=== PATIENT | male | born 1965 | race Caucasian/White ===

== ENCOUNTER 2017-01-26 15:38 | Emergency (ER) | payer OTHER ==
[~2017-01-26 15:38] MED LIST: HYDR-3533 PO; PRIL20CA PO; RIVA15 PO
[2017-01-26 15:40] VITALS: BP 131/85; PULSE 84; RESP 16; TEMP 98.7; O2SAT 99
--- NOTE | 2017-01-26 15:55 | PD ---
Physical Exam Date Seen by Provider: Jan 26, 2017 Time Seen by Provider: 15:53 Data Data Last Documented VS Vital Signs Date Time Temp Pulse Resp B/P Pulse Ox O2 Delivery O2 Flow Rate FiO2 01/26/17 15:40 98.7 84 16 131/85 99 MDM Supervised Visit with ROBBIE: No Narrative Course 51 YO M with complaint of "excruciating" LEFT flank pain since 2 AM. Intermittent, worsened by standing. Relieved by leaning forward while sitting. Patient states otherwise asymptomatic. Vitals reviewed. Patient seen in triage, awaiting bed placement. Angelina Echevarria Jan 26, 2017 15:55
[2017-01-26 16:08] VITALS: BP 133/82; PULSE 73; RESP 19; TEMP 97.9; O2SAT 98
[2017-01-26] MEDS ORDERED: SODIUM CHLOR 0.9% 1000 ML INJ 1,000 ML IV SCH (16:16)
[2017-01-26] MEDS ORDERED: FOLI400T PO (16:17)
[2017-01-26] MEDS ORDERED: CYAN100025 SL (16:17)
[2017-01-26] MEDS ORDERED: MONT10TA4 PO (16:17)
[2017-01-26] MEDS ORDERED: FLUT50SP EACH NARE (16:17)
[2017-01-26] MEDS ORDERED: OMEP20TA PO (16:17)
[2017-01-26 16:18] VITALS: BP 133/82; PULSE 74; RESP 19; TEMP 97.9; O2SAT 97
[2017-01-26] MEDS ORDERED: SODIUM CHLORIDE 0.9% FLUSH 10 ML FLUSH IV FLUSH PRN (16:30)
[2017-01-26] MEDS ORDERED: ONDANSETRON HCL 4 MG/2 ML VIAL IVP ONE (16:30)
[2017-01-26] MEDS ORDERED: MORPHINE SULFATE 4 MG/ML INJ IV PUSH ONE (16:30)
--- NOTE | 2017-01-26 16:49 | RADRPT ---
EXAM DATE/TIME: 01/26/2017 16:29 [facility] COMPARISON: No previous studies available for comparison. INDICATIONS : Left lower quadrant pain. ORAL CONTRAST: No oral contrast ingested. RADIATION DOSE: 14.61 CTDIvol (mGy) MEDICAL HISTORY : Gastroesophageal reflux disease. Hypertension. SURGICAL HISTORY : None. ENCOUNTER: Initial ACUITY: 1 day PAIN SCALE: 8/10 LOCATION: Left flank TECHNIQUE: Volumetric scanning of the abdomen and pelvis was performed. Using automated exposure control and ad justment of the mA and/or kV according to patient size, radiation dose was kept as low as reasonably achievable to obtain optimal diagnostic quality images. DICOM format image data is available electro nically for review and comparison. FINDINGS: Lung bases demonstrate some dependent atelectasis. No acute findings in the liver, spleen, adrenals, kidneys or pancreas. No calcified gallstones or biliary ductal dilatation. There is mural thickening of proximal sigmoid colon with numerous diverticula and perisigmoid inflamm atory changes characteristic of proximal sigmoid diverticulitis. No obstruction, abscess, free fluid or free air. No pelvic masses or adenopathy. CONCLUSION: 1. Diverticulitis of the proximal sigmoid colon without abscess, obstruction, free fluid or free air. Darian Bass MD on January 26, 2017 at 16:43 Board Certified Radiologist. This report was verified electronically.
[2017-01-26] MEDS ORDERED: metroNIDAZOLE 500 MG INJ 100 ML IV ONE (17:00)
[2017-01-26] MEDS ORDERED: CIPROFLOXACIN 400 MG PREMIX 200 ML IV ONE (17:00)
[2017-01-26 17:03] LABS: AUTOMATED NEUTROPHIL # 9.3 TH/MM3 (1.8-7.7); BASOPHIL # 0.1 TH/MM3 (0-0.2); BASOPHIL % 0.6 % (0.0-2.0); EOSINOPHIL # 0.2 TH/MM3 (0-0.4); EOSINOPHIL % 1.7 % (0.0-4.0); HEMATOCRIT 46.7 % (39.0-51.0); HEMO FLAGS DIFF FINAL; LYMPH % 16.2 % (9.0-44.0); MEAN CELL VOLUME 95.6 FL (80.0-100.0); MEAN CORPUSCULAR HEMOGLOBIN 32.3 PG (27.0-34.0); MEAN CORPUSCULAR HGB CONC 33.8 % (32.0-36.0); MONO % 6.2 % (0.0-8.0); NEUT % 75.3 % (16.0-70.0); PLATELET COUNT 170 TH/MM3 (150-450); RED BLOOD COUNT 4.89 MIL/MM3 (4.50-5.90); RED CELL DISTRIBUTION WIDTH 12.8 % (11.6-17.2); WHITE BLOOD COUNT 12.3 TH/MM3 (4.0-11.0)
[2017-01-26] MEDS ORDERED: CIPR-9 PO (17:09)
[2017-01-26] MEDS ORDERED: METR-1 PO (17:09)
--- NOTE | 2017-01-26 17:09 | PD ---
HPI Chief Complaint: GI Complaint Time Seen by Provider: 16:09 Travel History International Travel<30 days: No Contact w/Intl Traveler<30days: No Traveled to known affect area: No History of Present Illness HPI The 51-year-old man who presents to the emergency department complaining of severe left-sided flank and abdominal pain started about 2 AM. Since been off- and-on since onset. No nausea or vomiting. No fevers or chills. No changes urination. No rash. No change in his bowel movements. His a history of GERD, seasonal allergies, and a previous DVT in the past. He otherwise looks well. No history of previous similar symptoms. History Past Medical History Narrative Medical GERD Seasonal allergies History of DVT, on completed 6 months of Xarelto Tetanus Vaccination: Unknown Past Surgical History Surgical History: No Previous Surgery Social History Alcohol Use: Yes (4 SHOTS LIQUOR ON WEEKENDS) Tobacco Use: Yes (1 PPD) Allergies-Medications (Allergen,Severity, Reaction): Coded Allergies: Penicillin (Verified Adverse Reaction, Severe, FAINT, NAUSEA, 01/26/17) Reported Meds & Prescriptions Reported Meds & Active Scripts Active Flagyl (Metronidazole) 500 Mg Tab 500 Mg PO BID 7 Days Cipro (Ciprofloxacin HCl) 500 Mg Tab 500 Mg PO BID 7 Days Reported Folic Acid 400 Mcg Tab 1 Mg PO DAILY Montelukast (Montelukast Sodium) 10 Mg Tab 10 Mg PO HS Fluticasone Nasal [place] 50 Mcg/Act Naspr 50 Mcg EACH NARE BID 50 mcg/spray B-12 (Cyanocobalamin) 1,000 Mcg Subl 1,000 Mcg SL DAILY Omeprazole 20 Mg Tab 20 Mg PO DAILY Review of Systems Except as stated in HPI: all other systems reviewed are Neg Physical Exam Narrative GENERAL: Well-appearing 51-year-old man, no acute distress. SKIN: Focused skin assessment warm/dry. CARDIOVASCULAR: Regular rate and rhythm. No murmur appreciated. RESPIRATORY: No accessory muscle use. Clear to auscultation. Breath sounds equal bilaterally. GASTROINTESTINAL: Left-sided abdominal tenderness and some apparent allodynia as well. Some voluntary guarding. No peritonitis. MUSCULOSKELETAL: No obvious deformities. No clubbing. No cyanosis. No edema. NEUROLOGICAL: Awake and alert. No obvious cranial nerve deficits. Motor grossly within normal limits. Normal speech. PSYCHIATRIC: Appropriate mood and affect; insight and judgment normal. Data Data Last Documented VS Vital Signs Date Time Temp Pulse Resp B/P Pulse Ox O2 Delivery O2 Flow Rate FiO2 01/26/17 16:18 97.9 74 19 133/82 97 Room Air Orders Complete Blood Count With Diff (01/26/17 16:16) Comprehensive Metabolic Panel (01/26/17 16:16) Lipase (01/26/17 16:16) Urinalysis - C+S If Indicated (01/26/17 16:16) Ct Abd/Pel W/O Iv Contrast (01/26/17 16:16) Iv Access Insert/Monitor (01/26/17 16:16) Ecg Monitoring (01/26/17 16:16) Oximetry (01/26/17 16:16) Morphine Inj (Morphine Inj) (01/26/17 16:30) Ondansetron Inj (Zofran Inj) (01/26/17 16:30) Sodium Chlor 0.9% 1000 Ml Inj (Ns 1000 M (01/26/17 16:16) Sodium Chloride 0.9% Flush (Ns Flush) (01/26/17 16:30) Ciprofloxacin 400 Mg Premix (Cipro 400 M (01/26/17 17:00) Metronidazole 500 Mg Inj (Flagyl 500 Mg (01/26/17 17:00) Labs Laboratory Tests Test 01/26/17 16:20 White Blood Count 12.3 TH/MM3 Red Blood Count 4.89 MIL/MM3 Hemoglobin 15.8 GM/DL Hematocrit 46.7 % Mean Corpuscular Volume 95.6 FL Mean Corpuscular Hemoglobin 32.3 PG Mean Corpuscular Hemoglobin 33.8 % Concent Red Cell Distribution Width 12.8 % Platelet Count 170 TH/MM3 Mean Platelet Volume 9.0 FL Neutrophils (%) (Auto) 75.3 % Lymphocytes (%) (Auto) 16.2 % Monocytes (%) (Auto) 6.2 % Eosinophils (%) (Auto) 1.7 % Basophils (%) (Auto) 0.6 % Neutrophils # (Auto) 9.3 TH/MM3 Lymphocytes # (Auto) 2.0 TH/MM3 Monocytes # (Auto) 0.8 TH/MM3 Eosinophils # (Auto) 0.2 TH/MM3 Basophils # (Auto) 0.1 TH/MM3 CBC Comment DIFF FINAL Differential Comment Urine Color YELLOW Urine Turbidity CLEAR Urine pH 5.5 Urine Specific Free [place] 1.018 Urine Protein 100 mg/dL Urine Glucose (UA) NEG mg/dL Urine Ketones NEG mg/dL Urine Occult Blood TRACE Urine Nitrite NEG Urine Bilirubin NEG Urine Urobilinogen LESS THAN 2.0 MG/DL Urine Leukocyte Esterase NEG Urine RBC 1 /hpf Urine WBC 1 /hpf Urine Squamous Epithelial <1 /hpf Cells Urine Mucus FEW /lpf Microscopic Urinalysis Comment CULT NOT INDICATED Sodium Level 137 MEQ/L Potassium Level 4.1 MEQ/L Chloride Level 105 MEQ/L Carbon Dioxide Level 25.7 MEQ/L Anion Gap 6 MEQ/L Blood Urea Nitrogen 19 MG/DL Creatinine 1.12 MG/DL Estimat Glomerular Filtration 69 ML/MIN Rate Random Glucose 101 MG/DL Calcium Level 8.9 MG/DL Total Bilirubin 0.5 MG/DL Aspartate Amino Transf 8 U/L (AST/SGOT) Alanine Aminotransferase 15 U/L (ALT/SGPT) Alkaline Phosphatase 71 U/L Total Protein 6.9 GM/DL Albumin 3.5 GM/DL Lipase 102 U/L [facility] Medical Decision Making Medical Screen Exam Complete: Yes Emergency Medical Condition: Yes Interpretation(s) CT abdomen and pelvis: Diverticulitis of the proximal sigmoid colon without abscess obstruction free air or free fluid. CBC is remarkable for mild leukocytosis. CMP remarkable only for mildly elevated BUN Lipase normal UA unremarkable Differential Diagnosis Diverticulitis, renal lithiasis, zoster, other Narrative Course Medical decision-making new para this 51-year-old man who presents emergent arm of left-sided abdominal pain. Suspect a kidney stone or zoster. CT scan suggestive of diverticulitis. We'll treat with antibiotics, pain medicine, outpatient follow-up. Diagnosis Primary Impression: Diverticulitis Additional Instructions: Take antibiotics as prescribed. Use Lortab if needed for severe pain. Follow-up with your primary doctor this week. Return to the emergency department for any worsening fevers, abdominal pain, or any other new or worsening symptoms. Med/Other Pt SpecificInfo: Prescription(s) given Scripts Metronidazole (Flagyl)500 Mg [id number] Mg PO BID 7 Days Ref 0 Prov:King Porter MD 01/26/17 Ciprofloxacin (Cipro)500 Mg [id number] Mg PO BID 7 Days Ref 0 Prov:King Porter MD 01/26/17 Disposition: DISCHARGE HOME Condition: Stable King Porter MD Jan 26, 2017 17:09
[2017-01-26 17:13] LABS: BLOOD, URINE TRACE (NEG); COMMENT (UR) CULT NOT INDICATED; CULTURE IF INDICATED CULT NOT INDICATED; GLUCOSE,URINE NEG (NEG); KETONE, URINE NEG (NEG); MUCUS URINE FEW /lpf (OCC); NITRITE,URINE NEG (NEG); PH, URINE 5.5 (5.0-8.5); SQUAMOUS EPITHELIAL CELL URINE <1 /hpf (0-5); URINE COLOR YELLOW (YELLW/STRAW)
[2017-01-26 17:20] LABS: ANION GAP 6 MEQ/L (5-15); AST (GOT) 8 U/L (15-37); BICARBONATE 25.7 MEQ/L (21.0-32.0); BLOOD UREA NITROGEN 19 MG/DL (7-18); CHLORIDE 105 MEQ/L (98-107); GLOMERULAR FILTRATION RATE 69 ML/MIN (>89); POTASSIUM 4.1 MEQ/L (3.5-5.1); SODIUM (NA) 137 MEQ/L (136-145)
[2017-01-26 17:21] LABS: ALT (GPT) 15 U/L (12-78)
[2017-01-26 17:23] LABS: ALKALINE PHOSPHATASE 71 U/L (45-117); TOTAL BILIRUBIN ADULT 0.5 MG/DL (0.2-1.0)
[2017-01-26 18:01] VITALS: BP 119/67; PULSE 65; RESP 18; O2SAT 98
[2017-01-26] MEDS ORDERED: HYDR-3533 PO (19:04)
== END 2017-01-26 19:08 | disposition home or self-care (01) ==
LOC: NEPE 15:38
DX: K57.92 Diverticulitis of intestine, part unspecified, without perforation or abscess without bleeding (principal); D72.829 Elevated white blood cell count, unspecified; K21.9 Gastro-esophageal reflux disease without esophagitis; J31.0 Chronic rhinitis; Z86.718 Personal history of other venous thrombosis and embolism; F17.200 Nicotine dependence, unspecified, uncomplicated; Z88.0 Allergy status to penicillin; Z79.899 Other long term (current) drug therapy
CPT/HCPCS: 74176; 80053; 81001; 83690; 85025; 96361; 96374; 96375; 99285; J0744; J2270; J2405; J7030

== ENCOUNTER 2017-02-05 10:56 | Emergency (ER) | payer OTHER ==
[~2017-02-05] VITALS: Ht 185.4 cm; Wt 86.0 kg
[~2017-02-05 10:56] MED LIST changes: +CIPR-9 PO; +CYAN100025 SL; +FLUT50SP EACH NARE; +FOLI400T PO; +METR-1 PO; +MONT10TA4 PO; +OMEP20TA PO; -PRIL20CA PO; -RIVA15 PO
[2017-02-05 11:00] VITALS: BP 124/82; PULSE 85; RESP 16; TEMP 97.7; O2SAT 97
--- NOTE | 2017-02-05 11:29 | PD ---
HPI Chief Complaint: Medical Clearance Time Seen by Provider: 11:29 Travel History International Travel<30 days: No Contact w/Intl Traveler<30days: No Traveled to known affect area: No History of Present Illness HPI 51-year-old male presents to the emergency department sent by his primary care physician, Dr. Esquivel, for evaluation of a thrombus to the left arm. He states he was here in January 26, 2017 and was diagnosed with diverticulitis. He an IV in this area. He states that since then has been painful and sore. He was sent for an outpatient ultrasound. He states that his primary doctor called him and told to come the emergency Department due to having a thrombus in the left arm. The patient states it is painful. He has been doing warm compresses. He reports history of DVT the left leg approximately 1.5 years ago. He was on Xarelto for several months after, but then was taken off. Patient states he has some chest tightness since he was told that he had a blood clot. He is concerned about this. He denies any shortness of breath. He has abdominal pain from being diagnosed with diverticulitis. He is currently on Flagyl and Cipro. PFSH Past Medical History Arthritis: No Asthma: No Cancer: No Cardiovascular Problems: No High Cholesterol: No Chest Pain: Yes Congestive Heart Failure: No COPD: Yes Cerebrovascular Accident: No Diabetes: No Diminished Hearing: No Endocrine: No Gastrointestinal Disorders: Yes GERD: Yes Genitourinary: No Hypertension: Yes Immune Disorder: No Musculoskeletal: No Neurologic: No Psychiatric: No Reproductive: No Respiratory: Yes (BRONCHITIS) Immunizations Current: No Renal Failure: No Sleep Apnea: No Thyroid Disease: No Ulcer: No Past Surgical History Abdominal Surgery: No Cardiac Surgery: No Thoracic Surgery: No Social History Alcohol Use: Yes (4 SHOTS LIQUOR ON WEEKENDS) Tobacco Use: Yes (1 PPD) Substance Use: No Allergies-Medications (Allergen,Severity, Reaction): Coded Allergies: penicillin G (Unverified Adverse Reaction, Severe, FAINT, NAUSEA, 02/05/17) Reported Meds & Prescriptions Reported Meds & Active Scripts Active Lortab (Hydrocodone-Acetaminophen) 5-325 Mg Tab 1-2 Tab PO Q6H PRN Flagyl (Metronidazole) 500 Mg Tab 500 Mg PO BID 7 Days Cipro (Ciprofloxacin HCl) 500 Mg Tab 500 Mg PO BID 7 Days Reported Folic Acid 400 Mcg Tab 1 Mg PO DAILY Montelukast (Montelukast Sodium) 10 Mg Tab 10 Mg PO HS Fluticasone Nasal [place] 50 Mcg/Act Naspr 50 Mcg EACH NARE BID 50 mcg/spray B-12 (Cyanocobalamin) 1,000 Mcg Subl 1,000 Mcg SL DAILY Omeprazole 20 Mg Tab 20 Mg PO DAILY Review of Systems Except as stated in HPI: all other systems reviewed are Neg Physical Exam Narrative GENERAL: Well-nourished, well-developed male patient, afebrile. SKIN: Focused skin assessment warm/dry. HEAD: Normocephalic. Atraumatic. EYES: No scleral icterus. No injection or drainage. NECK: Supple, trachea midline. No JVD or lymphadenopathy. CARDIOVASCULAR: Regular rate and rhythm without murmurs, gallops, or rubs. Bilateral radial and pedal pulses are 2+. RESPIRATORY: Breath sounds equal bilaterally. No accessory muscle use. Lungs sounds are clear to auscultation. GASTROINTESTINAL: Abdomen soft, non-tender, nondistended. MUSCULOSKELETAL: No cyanosis, or edema. Patient has slight erythema and moderate tenderness over the left antecubital area BACK: Nontender without obvious deformity. No CVA tenderness. Data Data Last Documented VS Vital Signs Date Time Temp Pulse Resp B/P Pulse Ox O2 Delivery O2 Flow Rate FiO2 02/05/17 11:45 97.3 68 15 117/90 97 Room Air Orders Iv Access Insert/Monitor (02/05/17 11:36) Complete Blood Count With Diff (02/05/17 11:36) Act Partial Throm Time (Ptt) (02/05/17 11:36) Prothrombin Time / Inr (Pt) (02/05/17 11:36) Comprehensive Metabolic Panel (02/05/17 11:36) Ct Pulmonary Angiogram (02/05/17 ) Electrocardiogram (02/05/17 ) Morphine Inj (Morphine Inj) (02/05/17 11:45) Ondansetron Inj (Zofran Inj) (02/05/17 11:45) Creatine Kinase (Cpk) (02/05/17 11:36) Troponin I (02/05/17 11:36) Iohexol 350 Inj (Omnipaque 350 Inj) (02/05/17 15:02) Labs Laboratory Tests Test 02/05/17 12:00 White Blood Count 7.5 TH/MM3 Red Blood Count 4.70 MIL/MM3 Hemoglobin 15.5 GM/DL Hematocrit 44.7 % Mean Corpuscular Volume 95.0 FL Mean Corpuscular Hemoglobin 32.9 PG Mean Corpuscular Hemoglobin 34.6 % Concent Red Cell Distribution Width 12.7 % Platelet Count 165 TH/MM3 Mean Platelet Volume 8.8 FL Neutrophils (%) (Auto) 65.6 % Lymphocytes (%) (Auto) 24.5 % Monocytes (%) (Auto) 6.3 % Eosinophils (%) (Auto) 2.5 % Basophils (%) (Auto) 1.1 % Neutrophils # (Auto) 4.9 TH/MM3 Lymphocytes # (Auto) 1.8 TH/MM3 Monocytes # (Auto) 0.5 TH/MM3 Eosinophils # (Auto) 0.2 TH/MM3 Basophils # (Auto) 0.1 TH/MM3 CBC Comment DIFF FINAL Differential Comment Prothrombin Time 11.4 SEC Prothromb Time International 1.0 RATIO Ratio Activated Partial 25.9 SEC Thromboplast Time Sodium Level 139 MEQ/L Potassium Level 4.2 MEQ/L Chloride Level 106 MEQ/L Carbon Dioxide Level 25.5 MEQ/L Anion Gap 8 MEQ/L Blood Urea Nitrogen 19 MG/DL Creatinine 1.20 MG/DL Estimat Glomerular Filtration 64 ML/MIN Rate Random Glucose 99 MG/DL Calcium Level 8.4 MG/DL Total Bilirubin 0.2 MG/DL Aspartate Amino Transf 12 U/L (AST/SGOT) Alanine Aminotransferase 18 U/L (ALT/SGPT) Alkaline Phosphatase 55 U/L Total Creatine Kinase 75 U/L Troponin I LESS THAN 0.02 NG/ML Total Protein 6.5 GM/DL Albumin 3.3 GM/DL [facility] Medical Decision Making Medical Screen Exam Complete: Yes Emergency Medical Condition: Yes Medical Record Reviewed: Yes Interpretation(s) CT PA - CONCLUSION: 1. No pulmonary embolus identified. 2. Chronic interstitial changes and COPD. Differential Diagnosis Superficial thrombus versus DVT versus PE Narrative Course 51-year-old male presents to the emergency department for evaluation of thrombus the left arm. He also reports some chest tightness that started after being told he had a thrombus in his arm. I was able to pull up the ultrasound report from [facility] [place] [facility] which shows he is a thrombus in the basilic vein. The findings also stated that he had a thrombus in the basilic artery and vein. I talked to Dr. Umana, radiologist, who read the ultrasound. He states that he only has a thrombus in the basilic vein, not in any artery. He will correct the report. EKG, CBC, CMP, CK, troponin are ordered and pending. CT pulmonary angiogram is ordered and pending. Patient is given morphine 4 mg IV and Zofran 4 mg IV for pain. EKG shows SR, Hr 62, no acute ST changes. This was read by my attending physician, Dr. Porter. CBC is unremarkable. CMP shows no acute abnormality. CK is 75. Troponin is less than 0.02. CT pulmonary angiogram is negative for pulmonary embolus. Patient is to take aspirin daily due to superficial thrombus , warm compresses. He is to follow-up with his primary care physician. The patient was discharged in stable condition with instructions, including return instructions and follow up instructions. Diagnosis Primary Impression: Superficial thrombophlebitis Qualified Code: I80.8 - Superficial thrombophlebitis of left upper extremity Referrals: Primary Care Physician call for appointment Patient Instructions: General Instructions, Superficial Thrombophlebitis (ED) Additional Instructions: Take Aspirin daily. Warm compresses. Follow-up with your primary care physician. Return to the emergency department for any acute worsening of symptoms. Med/Other Pt SpecificInfo: No Change to Meds Disposition: 01 DISCHARGE HOME Condition: Stable IsaccYariel patelCindi ARNP Feb 05, 2017 11:29
[2017-02-05 11:45] VITALS: BP 117/90; PULSE 68; RESP 15; TEMP 97.3; O2SAT 97
[2017-02-05] MEDS ORDERED: ONDANSETRON HCL 4 MG/2 ML VIAL IV PUSH ONE (11:45)
[2017-02-05] MEDS ORDERED: MORPHINE SULFATE 4 MG/ML INJ IV PUSH ONE (11:45)
[2017-02-05 12:32] LABS: AUTOMATED NEUTROPHIL # 4.9 TH/MM3 (1.8-7.7); BASOPHIL # 0.1 TH/MM3 (0-0.2); BASOPHIL % 1.1 % (0.0-2.0); EOSINOPHIL # 0.2 TH/MM3 (0-0.4); EOSINOPHIL % 2.5 % (0.0-4.0); HEMATOCRIT 44.7 % (39.0-51.0); HEMO FLAGS DIFF FINAL; LYMPH % 24.5 % (9.0-44.0); LYMPHOCYTE # 1.8 TH/MM3 (1.0-4.8); MEAN CORPUSCULAR HEMOGLOBIN 32.9 PG (27.0-34.0); MEAN CORPUSCULAR HGB CONC 34.6 % (32.0-36.0); MONO % 6.3 % (0.0-8.0); NEUT % 65.6 % (16.0-70.0); PLATELET COUNT 165 TH/MM3 (150-450); RED CELL DISTRIBUTION WIDTH 12.7 % (11.6-17.2); WHITE BLOOD COUNT 7.5 TH/MM3 (4.0-11.0)
[2017-02-05 12:42] LABS: APTT (PATIENT) 25.9 SEC (24.3-30.1); PROTHROMBIN TIME - PATIENT 11.4 SEC (9.8-11.6)
[2017-02-05 12:49] LABS: ALT (GPT) 18 U/L (12-78); ANION GAP 8 MEQ/L (5-15); AST (GOT) 12 U/L (15-37); BICARBONATE 25.5 MEQ/L (21.0-32.0); BLOOD UREA NITROGEN 19 MG/DL (7-18); CHLORIDE 106 MEQ/L (98-107); GLOMERULAR FILTRATION RATE 64 ML/MIN (>89); POTASSIUM 4.2 MEQ/L (3.5-5.1); SODIUM (NA) 139 MEQ/L (136-145)
[2017-02-05 12:52] LABS: ALKALINE PHOSPHATASE 55 U/L (45-117); TOTAL BILIRUBIN ADULT 0.2 MG/DL (0.2-1.0)
[2017-02-05 12:54] LABS: CREATINE KINASE 75 U/L (39-308)
[2017-02-05] MEDS ORDERED: IOHEXOL 350 MG/ML 10 ML VIAL (for RAD DIAG) IV ONE (15:02)
--- NOTE | 2017-02-05 15:14 | RADRPT ---
EXAM DATE/TIME: 02/05/2017 14:52 [facility] COMPARISON: CT ABDOMEN & PELVIS W/O CONTRAST, January 26, 2017, 16:29. INDICATIONS : History of left arm blood clot IV CONTRAST: 64 cc Omnipaque 350 (iohexol) IV RADIATION DOSE: 23.36 CTDIvol (mGy) MEDICAL HISTORY : Hypertension. clot left arm SURGICAL HISTORY : None. ENCOUNTER: Initial ACUITY: 1 day PAIN SCALE: 10/10 LOCATION: chest TECHNIQUE: Volumetric scanning of the chest was performed using a pulmonary embolism protocol MIP images were re constructed. Using automated exposure control and adjustment of the mA and/or kV according to patien t size, radiation dose was kept as low as reasonably achievable to obtain optimal diagnostic quality images. DICOM format image data is available electronically for review and comparison. Follow-up recommendations for detected pulmonary nodules are based at a minimum on nodule size and pa tient risk factors according to Fleischner Society Guidelines. FINDINGS: The examination is of good diagnostic quality. No pulmonary embolus is identified. The heart is normal in size. There is no pericardial effusion. No significant hilar or mediastinal ad enopathy is seen. Imaging through the pulmonary parenchyma demonstrates chronic interstitial fibrotic changes. No suspi cious nodules or mass lesions are identified. The limited portions of upper abdomen visualized are unremarkable. The visualized bony structures are grossly intact. CONCLUSION: 1. No pulmonary embolus identified. 2. Chronic interstitial changes and COPD. Momo Kauffman MD on February 05, 2017 at 15:11 Board Certified Radiologist. This report was verified electronically.
--- NOTE | 2017-02-07 09:07 | EKG ---
Date Performed: 02/05/2017 Time Performed: 11:58:33 PTAGE: 51 years EKG: Sinus rhythm BORDERLINE LEFT AXIS DEVIATION POSSIBLE RIGHT VENTRICULAR CONDUCTION DELAY BORDERLINE ECG PREVIOUS TRACING : 12/28/2014 11.28 Compared to prior tracing no significant change DOCTOR: Vasile Zavala Interpretating Date/Time 02/07/2017 09:00:18
== END 2017-02-05 15:34 | disposition home or self-care (01) ==
LOC: NEPC 10:56
DX: I80.8 Phlebitis and thrombophlebitis of other sites (principal); I10 Essential (primary) hypertension; J44.9 Chronic obstructive pulmonary disease, unspecified; K21.9 Gastro-esophageal reflux disease without esophagitis; R07.9 Chest pain, unspecified
CPT/HCPCS: 71275; 80053; 82550; 84484; 85025; 85610; 85730; 93005; 96374; 96375; 99285; J2270; J2405; Q9967

== ENCOUNTER 2017-10-31 19:06 | Inpatient (IN) | payer SELFPAY, OTHER ==
[2017-10-31] MEDS ORDERED: MORPHINE SULFATE 2 MG/ML SYRINGE IV PUSH (19:30)
[2017-10-31 20:10] LABS: AUTOMATED NEUTROPHIL # 9.8 TH/MM3 (1.8-7.7); BASOPHIL # 0.1 TH/MM3 (0-0.2); BASOPHIL % 0.8 % (0.0-2.0); EOSINOPHIL # 0.2 TH/MM3 (0-0.4); EOSINOPHIL % 1.5 % (0.0-4.0); HEMO FLAGS DIFF FINAL; HEMOGLOBIN 15.4 GM/DL (13.0-17.0); LYMPH % 14.7 % (9.0-44.0); LYMPHOCYTE # 1.9 TH/MM3 (1.0-4.8); MEAN CELL VOLUME 95.4 FL (80.0-100.0); MEAN CORPUSCULAR HEMOGLOBIN 32.6 PG (27.0-34.0); MEAN CORPUSCULAR HGB CONC 34.2 % (32.0-36.0); MEAN PLATELET VOLUME 9.7 FL (7.0-11.0); MONO % 6.7 % (0.0-8.0); MONOCYTE # 0.9 TH/MM3 (0-0.9); NEUT % 76.3 % (16.0-70.0); PLATELET COUNT 181 TH/MM3 (150-450); RED BLOOD COUNT 4.72 MIL/MM3 (4.50-5.90); RED CELL DISTRIBUTION WIDTH 12.6 % (11.6-17.2); WHITE BLOOD COUNT 12.8 TH/MM3 (4.0-11.0)
[2017-10-31 20:22] LABS: APTT (PATIENT) 25.4 SEC (24.3-30.1); INTERNATIONAL NORMALIZED RATIO 1.1 RATIO; PROTHROMBIN TIME - PATIENT 10.7 SEC (9.8-11.6)
[2017-10-31 20:25] LABS: TROPONIN I LESS THAN 0.02 NG/ML (0.02-0.05)
[2017-10-31 20:26] LABS: ANION GAP 11 MEQ/L (5-15); BICARBONATE 24.5 MEQ/L (21.0-32.0); BLOOD UREA NITROGEN 15 MG/DL (7-18); CALCIUM 9.1 MG/DL (8.5-10.1); CHLORIDE 106 MEQ/L (98-107); CREATININE 1.25 MG/DL (0.60-1.30); GLOMERULAR FILTRATION RATE 61 ML/MIN (>89); GLUCOSE,RANDOM 94 MG/DL (74-106); POTASSIUM 3.8 MEQ/L (3.5-5.1); SODIUM (NA) 141 MEQ/L (136-145)
[2017-10-31] MEDS: MORPHINE SULFATE 4 MG/ML INJ IV PUSH (20:31)
[2017-10-31] MEDS: IOHEXOL 350 MG/ML 10 ML VIAL (for RAD DIAG) IVCONTRAST (21:44)
[2017-10-31] MEDS ORDERED: BISACODYL 10 MG SUPP RECTAL (22:30)
[2017-10-31] MEDS ORDERED: RESP: ALBUTEROL 2.5 MG/IPRATROPIUM 0.5 MG NEB (PRN) NEB (22:30)
[2017-10-31] MEDS ORDERED: SENNOSIDES 8.6 MG TAB PO (22:30)
[2017-10-31] MEDS ORDERED: LACTULOSE SYRUP 20 GM/30 ML CUP PO (22:30)
[2017-10-31] MEDS ORDERED: SODIUM CHLORIDE 0.9% FLUSH 10 ML FLUSH IV FLUSH (22:30)
[2017-10-31] MEDS ORDERED: ACETAMINOPHEN/HYDROcodone 325 MG/5 MG TAB PO (22:30)
[2017-10-31] MEDS ORDERED: ACETAMINOPHEN 325 MG TAB PO (22:30)
[2017-10-31] MEDS ORDERED: MAGNESIUM HYDROXIDE SUSP 30 ML CUP PO (22:30)
[2017-10-31] MEDS: ENOXAPARIN SODIUM 100 MG/ML SYRINGE SQ (22:51)
[2017-11-01] MEDS: ACETAMINOPHEN/HYDROcodone 325 MG/10 MG TAB PO ×5 (01:31→22:00)
[2017-11-01 03:36] LABS: ALBUMIN 3.2 GM/DL (3.4-5.0); ANION GAP 10 MEQ/L (5-15); AST (GOT) 13 U/L (15-37); BICARBONATE 26.4 MEQ/L (21.0-32.0); BLOOD UREA NITROGEN 14 MG/DL (7-18); CALCIUM 8.5 MG/DL (8.5-10.1); CHLORIDE 105 MEQ/L (98-107); CREATININE 1.16 MG/DL (0.60-1.30); GLOMERULAR FILTRATION RATE 66 ML/MIN (>89); GLUCOSE,RANDOM 116 MG/DL (74-106); POTASSIUM 3.6 MEQ/L (3.5-5.1); SODIUM (NA) 141 MEQ/L (136-145)
[2017-11-01 03:40] LABS: ALKALINE PHOSPHATASE 70 U/L (45-117); ALT (GPT) 19 U/L (12-78); TOTAL BILIRUBIN ADULT 0.5 MG/DL (0.2-1.0); TOTAL PROTEIN 6.4 GM/DL (6.4-8.2); TROPONIN I LESS THAN 0.02 NG/ML (0.02-0.05)
[2017-11-01] MEDS: PANTOPRAZOLE SOD 20 MG DELAYED RELEASE TAB PO (07:42)
[2017-11-01] MEDS: FOLIC ACID 1 MG TAB PO (07:43)
[2017-11-01] MEDS: SODIUM CHLORIDE 0.9% FLUSH 10 ML FLUSH IV FLUSH ×2 (07:44→20:07)
[2017-11-01] MEDS: DOCUSATE SODIUM 50 MG/SENNA 8.6 MG TAB PO ×2 (07:44→20:07)
[2017-11-01] MEDS: ENOXAPARIN SODIUM 100 MG/ML SYRINGE SQ ×2 (07:44→20:07)
[2017-11-01] MEDS: BUDESONIDE-FORMOTEROL 160/4.5 MCG INHALER INH ×2 (07:44→20:08)
[2017-11-01 07:48] LABS: AUTOMATED NEUTROPHIL # 6.3 TH/MM3 (1.8-7.7); BASOPHIL # 0.1 TH/MM3 (0-0.2); BASOPHIL % 0.9 % (0.0-2.0); EOSINOPHIL # 0.2 TH/MM3 (0-0.4); EOSINOPHIL % 2.5 % (0.0-4.0); HEMATOCRIT 41.9 % (39.0-51.0); HEMO FLAGS DIFF FINAL; HEMOGLOBIN 14.4 GM/DL (13.0-17.0); LYMPH % 21.4 % (9.0-44.0); MEAN CELL VOLUME 96.6 FL (80.0-100.0); MEAN CORPUSCULAR HEMOGLOBIN 33.3 PG (27.0-34.0); MEAN CORPUSCULAR HGB CONC 34.4 % (32.0-36.0); MEAN PLATELET VOLUME 9.4 FL (7.0-11.0); MONO % 8.9 % (0.0-8.0); MONOCYTE # 0.9 TH/MM3 (0-0.9); NEUT % 66.3 % (16.0-70.0); PLATELET COUNT 153 TH/MM3 (150-450); RED BLOOD COUNT 4.34 MIL/MM3 (4.50-5.90); RED CELL DISTRIBUTION WIDTH 12.8 % (11.6-17.2); WHITE BLOOD COUNT 9.5 TH/MM3 (4.0-11.0)
[2017-11-01 08:31] LABS: TROPONIN I LESS THAN 0.02 NG/ML (0.02-0.05)
[2017-11-01] MEDS: MONTELUKAST SODIUM 10 MG TAB PO (20:07)
[2017-11-02] MEDS: ACETAMINOPHEN/HYDROcodone 325 MG/10 MG TAB PO (05:42)
[2017-11-02] MEDS: DOCUSATE SODIUM 50 MG/SENNA 8.6 MG TAB PO (08:49)
[2017-11-02] MEDS: FOLIC ACID 1 MG TAB PO (08:49)
[2017-11-02] MEDS: SODIUM CHLORIDE 0.9% FLUSH 10 ML FLUSH IV FLUSH (08:50)
[2017-11-02] MEDS: RIVAROXABAN 15 MG TAB PO (08:50)
[2017-11-02] MEDS: BUDESONIDE-FORMOTEROL 160/4.5 MCG INHALER INH (08:50)
[2017-11-02] MEDS: PANTOPRAZOLE SOD 20 MG DELAYED RELEASE TAB PO (08:50)
[2017-11-02] MEDS: INFLUENZA VIRUS VACCINE (QUADRIVALENT) 0.5 ML SYR IM (08:55)
[2017-11-02] MEDS: PNEUMOCOCCAL POLYVALENT INJ 25 MCG/0.5 ML SYR IM (08:58)
== END 2017-11-02 10:30 | disposition home or self-care (01) | DRG 176 ==
LOC: N03B 11-01 01:19 → NEPD 19:06 → NEDA 22:21
DX: I26.99 Other pulmonary embolism without acute cor pulmonale (principal); Z86.718 Personal history of other venous thrombosis and embolism; Z72.0 Tobacco use; Z88.0 Allergy status to penicillin
CPT/HCPCS: 71045; 71101; 71275; 80048; 80053; 84484; 85025; 85610; 85730; 93005; 93306; 94618; 96374; 99285-25

== ENCOUNTER 2017-11-02 17:19 | Inpatient (IN) | payer SELFPAY ==
[~2017-11-02] VITALS: Ht 188 cm; Wt 95.0 kg
[~2017-11-02 17:19] MED LIST changes: -CIPR-9 PO; -HYDR-3533 PO; -METR-1 PO; -OMEP20TA PO; +OMEP20TA93 PO; +VENTAER INH; +XARE15TA PO
[2017-11-02 17:23] VITALS: BP 138/90; PULSE 85; RESP 20; TEMP 98.5; O2SAT 97
[2017-11-02 18:15] LABS: INTERNATIONAL NORMALIZED RATIO 1.1 RATIO
[2017-11-02 18:18] LABS: D-DIMER 0.76 MG/L FEU (0.00-0.50)
[2017-11-02 18:19] VITALS: RESP 18; O2SAT 96
[2017-11-02 18:19] LABS: AUTOMATED NEUTROPHIL # 6.1 TH/MM3 (1.8-7.7); BASOPHIL # 0.1 TH/MM3 (0-0.2); BASOPHIL % 0.8 % (0.0-2.0); BICARBONATE 27.4 MEQ/L (21.0-32.0); BLOOD UREA NITROGEN 18 MG/DL (7-18); CALCIUM 9.2 MG/DL (8.5-10.1); CHLORIDE 103 MEQ/L (98-107); CREATININE 1.43 MG/DL (0.60-1.30); EOSINOPHIL # 0.1 TH/MM3 (0-0.4); EOSINOPHIL % 1.3 % (0.0-4.0); GLOMERULAR FILTRATION RATE 52 ML/MIN (>89); GLUCOSE,RANDOM 112 MG/DL (74-106); HEMATOCRIT 46.4 % (39.0-51.0); HEMOGLOBIN 16.1 GM/DL (13.0-17.0); LYMPH % 20.4 % (9.0-44.0); LYMPHOCYTE # 1.7 TH/MM3 (1.0-4.8); MEAN CELL VOLUME 96.8 FL (80.0-100.0); MEAN CORPUSCULAR HEMOGLOBIN 33.6 PG (27.0-34.0); MEAN CORPUSCULAR HGB CONC 34.7 % (32.0-36.0); MEAN PLATELET VOLUME 9.5 FL (7.0-11.0); MONO % 5.6 % (0.0-8.0); MONOCYTE # 0.5 TH/MM3 (0-0.9); NEUT % 71.9 % (16.0-70.0); PLATELET COUNT 153 TH/MM3 (150-450); RED BLOOD COUNT 4.79 MIL/MM3 (4.50-5.90); RED CELL DISTRIBUTION WIDTH 12.4 % (11.6-17.2); SODIUM (NA) 139 MEQ/L (136-145); WHITE BLOOD COUNT 8.5 TH/MM3 (4.0-11.0)
[2017-11-02 18:20] VITALS: BP 126/74; PULSE 84; RESP 18; O2SAT 96
[2017-11-02 18:23] LABS: TROPONIN I LESS THAN 0.02 NG/ML (0.02-0.05)
[2017-11-02] MEDS ORDERED: FLUT1INH INH (18:29)
--- NOTE | 2017-11-02 18:40 | PD ---
HPI Chief Complaint: Respiratory Symptoms Time Seen by Provider: 17:58 Travel History International Travel<30 days: No Contact w/Intl Traveler<30days: No Traveled to known affect area: No History of Present Illness HPI 52-year-old male previously seen on October 31 and diagnosed with a pulmonary embolism was of the second he has had in 2 years, was admitted and given heparin and discharged home with Xarelto with a coupon. Patient went to get his Xarelto and was unable to purchase it, as he has had previous use of coupon 1-1/2 years ago, and cannot afford the $600 fee for the medication. Patient has no acute complaints. He is back at the urging of his physician to be readmitted and placed on heparin and Coumadin. He has allergies to penicillin. PFSH Past Medical History Hx Anticoagulant Therapy: Yes (lovenox) Arthritis: No Asthma: No Cancer: No Cardiovascular Problems: Yes High Cholesterol: No Chest Pain: Yes Congestive Heart Failure: No COPD: Yes Cerebrovascular Accident: No Diabetes: No Diminished Hearing: No Deep Vein Thrombosis: Yes (x1/leg) Endocrine: No Gastrointestinal Disorders: Yes (divertilitis) GERD: Yes Genitourinary: No Hypertension: Yes Immune Disorder: No Implanted Vascular Access Dvce: No Musculoskeletal: No Neurologic: No Psychiatric: No Reproductive: No Respiratory: Yes (PE in 2018) Immunizations Current: No Renal Failure: No Sleep Apnea: No Thyroid Disease: No Ulcer: No Past Surgical History Abdominal Surgery: No Cardiac Surgery: No Thoracic Surgery: No Other Surgery: No Social History Alcohol Use: No Tobacco Use: Yes (1 pack ) Substance Use: Yes (occassional marijuana) Allergies-Medications (Allergen,Severity, Reaction): Coded Allergies: penicillin G (Unverified Adverse Reaction, Severe, FAINT, NAUSEA, 10/31/17) Reported Meds & Prescriptions Reported Meds & Active Scripts Active Reported Breo Ellipta Inh (Fluticasone/Vilanterol) 100-25 Mcg/Act Inh 1 Puff INH DAILY Use daily at the same time. Folic Acid 400 Mcg Tab 1 Mg PO DAILY Montelukast (Montelukast Sodium) 10 Mg Tab 10 Mg PO HS Fluticasone Nasal [place] 50 Mcg/Act Naspr 50 Mcg EACH NARE BID 50 mcg/spray B-12 (Cyanocobalamin) 1,000 Mcg Subl 1,000 Mcg SL DAILY Omeprazole 20 Mg Tab 20 Mg PO DAILY Review of Systems Except as stated in HPI: all other systems reviewed are Neg General / Constitutional: No: Fever Eyes: No: Visual changes HENT: No: Headaches Cardiovascular: No: Chest Pain or Discomfort Respiratory: No: Shortness of Breath Gastrointestinal: No: Abdominal Pain Genitourinary: No: Dysuria Musculoskeletal: No: Pain Skin: No Rash Neurologic: No: Weakness Psychiatric: No: Depression Endocrine: No: Polydipsia Hematologic/Lymphatic: No: Easy Bruising Physical Exam Narrative GENERAL: Patient appears in no acute distress. SKIN: Warm and dry. Normal color. Normal turgor HEAD: Atraumatic. Normocephalic. EYES: Pupils equal and round. No scleral icterus. No injection or drainage. ENT: No nasal bleeding or discharge. Mucous membranes pink and moist. Pharynx is clear. Airways patent NECK: Trachea midline. Supple and nontender CARDIOVASCULAR: Regular rate and rhythm. RESPIRATORY: No accessory muscle use. Clear to auscultation. Breath sounds equal bilaterally. GASTROINTESTINAL: Abdomen soft, non-tender, nondistended. Hepatic and splenic margins not palpable. MUSCULOSKELETAL: Extremities without clubbing, cyanosis, or edema. No obvious deformities. NEUROLOGICAL: Awake and alert. No obvious cranial nerve deficits. Motor grossly within normal limits. Five out of 5 muscle strength in the arms and legs. Normal speech. PSYCHIATRIC: Appropriate mood and affect; insight and judgment normal. Data Data Last Documented VS Vital Signs Date Time Temp Pulse Resp B/P (MAP) Pulse Ox O2 Delivery O2 Flow Rate FiO2 11/02/17 18:20 84 18 126/74 (91) 96 Room Air 11/02/17 17:23 98.5 Orders Orders Electrocardiogram (11/02/17:) Complete Blood Count With Diff (11/02/17:) Basic Metabolic Panel (Bmp) (11/02/17:) Ckmb (Isoenzyme) Profile (11/02/17) Troponin I (11/02/17) Iv Access Insert/Monitor (11/02/17) Ecg Monitoring (11/02/17) Oxygen Administration (11/02/17) Oximetry (11/02/17:) Prothrombin Time / Inr (Pt) (5/12/18 17:26) Act Partial Throm Time (Ptt) (11/02/17 17:26) D-Dimer (11/02/17 17:26) Ct Pulmonary Angiogram (11/02/17 17:59) Labs Laboratory Tests Test 11/02/17 17:30 White Blood Count 8.5 TH/MM3 Red Blood Count 4.79 MIL/MM3 Hemoglobin 16.1 GM/DL Hematocrit 46.4 % Mean Corpuscular Volume 96.8 FL Mean Corpuscular Hemoglobin 33.6 PG Mean Corpuscular Hemoglobin Concent 34.7 % Red Cell Distribution Width 12.4 % Platelet Count 153 TH/MM3 Mean Platelet Volume 9.5 FL Neutrophils (%) (Auto) 71.9 % Lymphocytes (%) (Auto) 20.4 % Monocytes (%) (Auto) 5.6 % Eosinophils (%) (Auto) 1.3 % Basophils (%) (Auto) 0.8 % Neutrophils # (Auto) 6.1 TH/MM3 Lymphocytes # (Auto) 1.7 TH/MM3 Monocytes # (Auto) 0.5 TH/MM3 Eosinophils # (Auto) 0.1 TH/MM3 Basophils # (Auto) 0.1 TH/MM3 CBC Comment DIFF FINAL Differential Comment Prothrombin Time 11.0 SEC Prothromb Time International Ratio 1.1 RATIO Activated Partial Thromboplast Time 27.5 SEC D-Dimer Quantitative (PE/DVT) 0.76 MG/L FEU Blood Urea Nitrogen 18 MG/DL Creatinine 1.43 MG/DL Random Glucose 112 MG/DL Calcium Level 9.2 MG/DL Sodium Level 139 MEQ/L Potassium Level 3.8 MEQ/L Chloride Level 103 MEQ/L Carbon Dioxide Level 27.4 MEQ/L Anion Gap 9 MEQ/L Estimat Glomerular Filtration Rate 52 ML/MIN Total Creatine Kinase 80 U/L Troponin I LESS THAN 0.02 NG/ML [facility] Medical Decision Making Medical Screen Exam Complete: Yes Emergency Medical Condition: Yes Medical Record Reviewed: Yes Differential Diagnosis PE. Need for anticoagulation. Failure to outpatient therapy Narrative Course CBC, CMP, coagulation studies ordered. CBC is unremarkable. Platelets are normal. Coagulation studies shows a PT of 11.1, INR 1.1, APTT is 27.5. D-dimer is elevated at 0.76. CMP unremarkable except for creatinine 1.43, GFR 62, glucose is 112, troponin is less than 0.02. Repeat radiographic imaging is not felt warranted. Calls placed to the hospitalist for admission. Diagnosis Primary Impression: Pulmonary embolism Qualified Codes: I26.99 - Other pulmonary embolism without acute cor pulmonale Additional Impression: Failure of outpatient treatment Admitting Information Admitting Physician Requests: Observation Condition: Stable James Muniz November 02, 2017 18:40
[2017-11-02] MEDS ORDERED: APIXABAN 5 MG TABLET PO ONE (19:00)
[2017-11-02] MEDS ORDERED: SENNOSIDES 8.6 MG TAB PO PRN (19:00)
[2017-11-02] MEDS ORDERED: NALOXONE HCL 0.4 MG/ML AMP IV PUSH PRN (19:00)
[2017-11-02] MEDS ORDERED: LACTULOSE SYRUP 20 GM/30 ML CUP PO PRN (19:00)
[2017-11-02] MEDS ORDERED: BISACODYL 10 MG SUPP RECTAL PRN (19:00)
[2017-11-02] MEDS ORDERED: MAGNESIUM HYDROXIDE SUSP 30 ML CUP PO PRN (19:00)
[2017-11-02] MEDS ORDERED: SODIUM CHLORIDE 0.9% FLUSH 10 ML FLUSH IV FLUSH PRN ×2 (19:00→19:30)
[2017-11-02] MEDS ORDERED: ACETAMINOPHEN 325 MG TAB PO PRN ×2 (19:00→19:30)
[2017-11-02 19:16] VITALS: BP 136/83; PULSE 74; RESP 16; O2SAT 96
--- NOTE | 2017-11-02 19:27 | HHI.HP ---
[facility] Primary Care Physician Saad Esquivel M.D. Admission Diagnosis PE/Outpatient failure Diagnoses: (1) Pulmonary embolism Diagnosis: Principal (2) Chest pain Diagnosis: Principal (3) Tobacco abuse Diagnosis: Principal Travel History International Travel<30 Days: No Contact w/Intl Traveler <30 Da: No Traveled to Known Affected Are: No History of Present Illness This is a 52-year-old male with a PMH of LLE DVT and Tobacco Abuse who admitted by me on 10/31/17 for c/o SOB/Chest Pain found to have small pulmonary artery emboli in right lower lobe branches on CTA Pulm. Was started on Heparin gtt and d/c'd home on Xarelto. Mother called after discharge stating that Xarelto was not covered and pt did not qualify for free month supply of Xarelto as he had been on it in the past w/ free trial. Mother told by MD to have pt return to the hospital for re-admission in order to continue anticoagulation. Pt w/o complaints except right-sided chest pain w/ deep inspiration, seemingly unchanged from previous visit. No c/o SOB, fever or cough. On arrival, BP 138/ 90, HR 85, O2 sat 97% on RA, Afebrile. CBC unremarkable. Creatinine 1.43, previously 1.16 on 11/01/2017. Troponin negative. INR 1.1. S/p Eliquis in ER. Review of Systems Except as stated in HPI: all other systems reviewed are Neg ROS: 14 point review of systems otherwise negative. Past Family Social History Past Medical History PMH: LLE DVT, PE and Tobacco Abuse Past Surgical History PAST SURGICAL HISTORY: None Allergies: Coded Allergies: penicillin G (Unverified Adverse Reaction, Severe, FAINT, NAUSEA, 10/31/17) Family History PAST FAMILY HISTORY: Reviewed. No h/o DM or CAD Social History PAST SOCIAL HISTORY: Negative for alcohol. Smokes 1ppd. Occasional Marijuana. Physical Exam Vital Signs Vital Signs Date Time Temp Pulse Resp B/P (MAP) Pulse Ox O2 Delivery O2 Flow Rate FiO2 11/02/17 19:16 74 16 136/83 (100) 96 Room Air 11/02/17 18:20 84 18 126/74 (91) 96 Room Air 11/02/17 18:20 82 18 95 Room Air 11/02/17 18:19 96 Room Air 11/02/17 18:19 18 96 Room Air 11/02/17 17:23 98.5 85 20 138/90 (106) 97 Physical Exam PE: GENERAL: Very pleasant middle-aged white male in no acute distress. Mother at bedside. HEENT: PERRLA, EOMI. No scleral icterus or conjunctival pallor. No lid lag or facial droop. CARDIOVASCULAR: Regular rate and rhythm. No obvious murmurs to auscultation. No chest tenderness to palpation. RESPIRATORY: No obvious rhonchi or wheezing. Clear to auscultation. Breath sounds equal bilaterally. GASTROINTESTINAL: Abdomen soft, non-tender, nondistended. BS normal. MUSCULOSKELETAL: Extremities without clubbing, cyanosis, or edema. No obvious deformities. NEUROLOGICAL: Awake, alert and oriented x4. No focal neurologic deficits. Moving both upper and lower extremities spontaneously. Laboratory Laboratory Tests Test 11/02/17 17:30 White Blood Count 8.5 Red Blood Count 4.79 Hemoglobin 16.1 Hematocrit 46.4 Mean Corpuscular Volume 96.8 Mean Corpuscular Hemoglobin 33.6 Mean Corpuscular Hemoglobin Concent 34.7 Red Cell Distribution Width 12.4 Platelet Count 153 Mean Platelet Volume 9.5 Neutrophils (%) (Auto) 71.9 Lymphocytes (%) (Auto) 20.4 Monocytes (%) (Auto) 5.6 Eosinophils (%) (Auto) 1.3 Basophils (%) (Auto) 0.8 Neutrophils # (Auto) 6.1 Lymphocytes # (Auto) 1.7 Monocytes # (Auto) 0.5 Eosinophils # (Auto) 0.1 Basophils # (Auto) 0.1 CBC Comment DIFF FINAL Differential Comment Prothrombin Time 11.0 Prothromb Time International Ratio 1.1 Activated Partial Thromboplast Time 27.5 D-Dimer Quantitative (PE/DVT) 0.76 Blood Urea Nitrogen 18 Creatinine 1.43 Random Glucose 112 Calcium Level 9.2 Sodium Level 139 Potassium Level 3.8 Chloride Level 103 Carbon Dioxide Level 27.4 Anion Gap 9 Estimat Glomerular Filtration Rate 52 Total Creatine Kinase 80 Troponin I LESS THAN 0.02 Result Diagram: 11/02/17172911/02/171729 Caprini VTE Risk Assessment Caprini VTE Risk Assessment: Mod/High Risk (score >= 2) Caprini Risk Assessment Model Point Value = 1 Point Value = 2 Point Value = 3 Point Value = 5 Age 41-60 Minor surgery BMI > 25 kg/m2 Swollen legs Varicose veins or History of unexplained or recurrent spontaneous Oral contraceptives or hormone replacement Sepsis (< 1 month) Serious lung disease, including pneumonia (< 1 month) Abnormal pulmonary function Acute myocardial infarction Congestive heart failure (< 1 month) History of inflammatory bowel disease Medical patient at bed rest Age 61-74 Arthroscopic surgery Major open surgery (> 45 min) Laparoscopic surgery (> 45 min) Malignancy Confined to bed (> 72 hours) Immobilizing plaster cast Central venous access Age >= 75 History of VTE Family history of VTE Factor V Leiden Prothrombin [id number] Lupus anticoagulant Anticardiolipin antibodies Elevated serum homocysteine Heparin-induced thrombocytopenia Other congenital or acquired thrombophilia Stroke (< 1 month) Elective arthroplasty Hip, pelvis, or leg fracture Acute spinal cord injury (< 1 month) Prophylaxis Regimen Total Risk Factor Score Risk Level Prophylaxis Regimen 0-1 Low Early ambulation 2 Moderate Order ONE of the following: *Sequential Compression Device (SCD) *Heparin 5000 units SQ BID 3-4 Higher Order ONE of the following medications: *Heparin 5000 units SQ TID *Enoxaparin/Lovenox 40 mg SQ daily (WT < 150 kg, CrCl > 30 mL/min) *Enoxaparin/Lovenox 30 mg SQ daily (WT < 150 kg, CrCl > 10-29 mL/min) *Enoxaparin/Lovenox 30 mg SQ BID (WT < 150 kg, CrCl > 30 mL/min) AND/OR *Sequential Compression Device (SCD) 5 or more Highest Order ONE of the following medications: *Heparin 5000 units SQ TID (Preferred with Epidurals) *Enoxaparin/Lovenox 40 mg SQ daily (WT < 150 kg, CrCl > 30 mL/min) *Enoxaparin/Lovenox 30 mg SQ daily (WT < 150 kg, CrCl > 10-29 mL/min) *Enoxaparin/Lovenox 30 mg SQ BID (WT < 150 kg, CrCl > 30 mL/min) AND *Sequential Compression Device (SCD) Assessment and Plan Problem List: (1) Pulmonary embolism ICD Code: I26.99 - Other pulmonary embolism without acute cor pulmonale Status: Acute (2) Chest pain ICD Code: R07.9 - Chest pain, unspecified (3) Tobacco abuse ICD Code: Z72.0 - Tobacco use Assessment and Plan A/P: 1. PE: recent admit 10/31/17, CTA Pulm +PE, h/o DVT LLE 1.5yrs ago, on Xarelto for 6mo and taken off by Dr. Henderson, now w/ PE. Will need lifelong anticoagulation. Was d/c'd earlier today w/ Rx for Xarelto, however pt unable to afford $600 monthly payment, he does not qualify for free trial as he used it 1.5yrs ago w/ his DVT. S/p Eliquis in ER, in light of financial burden w/ [place] as well, will start on Coumadin therapy in addition to Lovenox bid until therapeutic. I discussed w/ pt/Mother at length regarding choice of anticoagulation and they prefer to be on Coumadin due to financial reasons. Outpatient follow up w/ Dr. Henderson/PCP for regular PT/INR checks. 2. Chest Pain: right-sided chest wall pain, likely secondary to PE. Initial trop negative, will check serial enzymes for trend. Lidoderm patch prn. 3. Tobacco Abuse: Pt counselled, Ativan prn. 4. DVT Prophylaxis: Lovenox/Coumadin for acute PE. 5. Social work for d/c planning as needed. 6. Case discussed w/ ER physician at length, labs/records/imaging reviewed by me. Physician Certification 2 Midnight Certification Type: Admission for Inpatient Services Order for Inpatient Services The services are ordered in accordance with Medicare regulations or non- Medicare payer requirements, as applicable. In the case of services not specified as inpatient-only, they are appropriately provided as inpatient services in accordance with the 2-midnight benchmark. Estimated LOS (days): 2 days is the estimated time the patient will need to remain in the hospital, assuming treatment plan goals are met and no additional complications. Post-Hospital Plan: Not yet determined Problem Qualifiers (1) Pulmonary embolism: Qualified Codes: I26.99 - Other pulmonary embolism without acute cor pulmonale Michelle Holloway MD November 02, 2017 19:26
[2017-11-02] MEDS ORDERED: METOCLOPRAMIDE HCL 10 MG/2 ML VIAL IV PUSH PRN (19:30)
[2017-11-02 20:30] VITALS: BP 134/79; PULSE 86; RESP 17; TEMP 97.9; O2SAT 96
[2017-11-02] MEDS ORDERED: LIDOCAINE HCL 5% PATCH T-DERMAL PRN (20:45)
[2017-11-02] MEDS: SODIUM CHLORIDE 0.9% FLUSH 10 ML FLUSH IV FLUSH SCH ×2 (21:00→21:44)
[2017-11-02] MEDS: FLUTICASONE PROPIONATE 50 MCG/ACT 16 GM NASAL SPRAY EACH NARE SCH (21:42)
[2017-11-02] MEDS: SODIUM CHLOR 0.9% 1000 ML INJ 1,000 ML IV SCH ×2 (21:42→21:45)
[2017-11-02] MEDS: DOCUSATE SODIUM 50 MG/SENNA 8.6 MG TAB PO SCH (21:43)
[2017-11-02] MEDS: MONTELUKAST SODIUM 10 MG TAB PO SCH (21:43)
[2017-11-02] MEDS: ACETAMINOPHEN/HYDROcodone 325 MG/5 MG TAB PO PRN (21:43)
[2017-11-02 22:00] VITALS: PULSE 73
[2017-11-03] VITALS (9 sets, daily range): BP systolic 112–139; BP diastolic 65–83; PULSE 54–77; RESP 16–18; TEMP 96.8–97.9; O2SAT 95–98
[2017-11-03] MEDS: MORPHINE SULFATE 2 MG/ML SYRINGE IV PUSH PRN ×2 (00:27→06:48)
[2017-11-03] MEDS: ACETAMINOPHEN/HYDROcodone 325 MG/5 MG TAB PO PRN ×5 (05:43→21:15)
[2017-11-03 05:57] LABS: BASOPHIL # 0.1 TH/MM3 (0-0.2); EOSINOPHIL # 0.2 TH/MM3 (0-0.4); EOSINOPHIL % 2.9 % (0.0-4.0); HEMATOCRIT 40.2 % (39.0-51.0); HEMOGLOBIN 13.9 GM/DL (13.0-17.0); LYMPH % 31.7 % (9.0-44.0); LYMPHOCYTE # 2.2 TH/MM3 (1.0-4.8); MEAN CELL VOLUME 96.4 FL (80.0-100.0); MEAN CORPUSCULAR HEMOGLOBIN 33.3 PG (27.0-34.0); MEAN CORPUSCULAR HGB CONC 34.5 % (32.0-36.0); MONOCYTE # 0.5 TH/MM3 (0-0.9); NEUT % 57.4 % (16.0-70.0); PLATELET COUNT 149 TH/MM3 (150-450); RED BLOOD COUNT 4.17 MIL/MM3 (4.50-5.90); RED CELL DISTRIBUTION WIDTH 12.8 % (11.6-17.2); WHITE BLOOD COUNT 6.9 TH/MM3 (4.0-11.0)
[2017-11-03 06:37] LABS: ALBUMIN 2.9 GM/DL (3.4-5.0); ALKALINE PHOSPHATASE 57 U/L (45-117); ALT (GPT) 15 U/L (12-78); AST (GOT) 10 U/L (15-37); BICARBONATE 26.4 MEQ/L (21.0-32.0); BLOOD UREA NITROGEN 18 MG/DL (7-18); CALCIUM 8.2 MG/DL (8.5-10.1); CHLORIDE 106 MEQ/L (98-107); CREATININE 1.09 MG/DL (0.60-1.30); GLOMERULAR FILTRATION RATE 71 ML/MIN (>89); GLUCOSE,RANDOM 113 MG/DL (74-106); SODIUM (NA) 140 MEQ/L (136-145); TOTAL BILIRUBIN ADULT 0.3 MG/DL (0.2-1.0); TROPONIN I LESS THAN 0.02 NG/ML (0.02-0.05)
[2017-11-03] MEDS: SODIUM CHLOR 0.9% 1000 ML INJ 1,000 ML IV SCH (06:48)
[2017-11-03] MEDS: DOCUSATE SODIUM 50 MG/SENNA 8.6 MG TAB PO SCH ×2 (07:40→20:19)
[2017-11-03] MEDS: PANTOPRAZOLE SOD 20 MG DELAYED RELEASE TAB PO SCH (07:40)
[2017-11-03] MEDS: FLUTICASONE PROPIONATE 50 MCG/ACT 16 GM NASAL SPRAY EACH NARE SCH ×2 (07:40→20:19)
[2017-11-03] MEDS: FOLIC ACID 1 MG TAB PO SCH (07:40)
[2017-11-03] MEDS: ENOXAPARIN SODIUM 60 MG/0.6 ML SYRINGE SQ SCH ×2 (07:41→20:20)
[2017-11-03] MEDS: SODIUM CHLORIDE 0.9% FLUSH 10 ML FLUSH IV FLUSH SCH ×3 (07:41→20:20)
--- NOTE | 2017-11-03 08:04 | HHI.PR ---
Subjective Remarks in no acute distress. still with some right-sided pleuritic chest pain. no sob. Objective Vitals Vital Signs Date Time Temp Pulse Resp B/P (MAP) Pulse Ox O2 Delivery O2 Flow Rate FiO2 11/03/17 04:35 96.8 58 17 112/72 (85) 97 11/03/17 04:07 54 11/03/17 00:20 97.6 66 17 114/65 (81) 95 11/03/17 00:07 61 11/02/17 22:00 73 11/02/17 20:30 97.9 86 17 134/79 (97) 96 11/02/17 19:16 74 16 136/83 (100) 96 Room Air 11/02/17 18:20 84 18 126/74 (91) 96 Room Air 11/02/17 18:20 82 18 95 Room Air 11/02/17 18:19 96 Room Air 11/02/17 18:19 18 96 Room Air 11/02/17 17:23 98.5 85 20 138/90 (106) 97 I/O 11/02/17 11/02/17 11/02/17 11/03/17 11/03/17 11/03/17 07:00 15:00 23:00 07:00 15:00 23:00 Intake Total 1480 ml Balance 1480 ml Intake Oral 480 ml IV Total 1000 ml # Voids 2 # Bowel Movements 0 Result Diagram: 11/03/17 0539 11/03/17 0539 Objective Remarks GENERAL: This is a well-nourished, well-developed patient, in no apparent distress. CARDIOVASCULAR: Regular rate and regular rhythm without murmurs, gallops, or rubs. RESPIRATORY: Clear to auscultation. Breath sounds equal bilaterally. No wheezes , rales, or rhonchi. GASTROINTESTINAL: Abdomen soft, non-tender, nondistended. Normal, active bowel sounds MUSCULOSKELETAL: Extremities without clubbing, cyanosis, or edema. NEURO: Alert & Oriented x4 to person, place, time, situation. Moves all ext x4 Medications and IVs Inpatient Medications Acetaminophen (Tylenol) 650 mg Q6H PRN PO FEVER/PAIN 1-2; Start 11/02/17 at 19: 30 Acetaminophen/ Hydrocodone Bitart ([place] 5-325 Mg) 1 tab Q4H PRN PO PAIN SCALE 3 TO 5 Last administered on 11/03/17at 05:43; Start 11/02/17 at 19:30 Apixaban (Eliquis) 5 mg BID PO ; Start 11/10/17 at 09:00; Stop 11/10/17 at 09:00 ; Status DC Bisacodyl (Dulcolax Supp) 10 mg DAILY PRN RECTAL SEVERE CONSITIPATION; Start at 19:00 Enoxaparin Sodium (Lovenox Inj) 50 mg Q12H SQ Last administered on 11/03/17at 07 :41; Start 11/03/17 at 09:00 Fluticasone Propionate (Flonase Marco Spr) 1 spray BID EACH NARE Last administered on 11/03/17at 07:40; Start 11/02/17 at 21:00 Folic Acid (Folate) 1 mg DAILY PO Last administered on 11/03/17at 07:40; Start 11/03/17 at 09:00 Lactulose (Lactulose Liq) 30 ml DAILY PRN PO SEVERE CONSITIPATION; Start at 19:00 Lidocaine HCl (Lidoderm 5% Patch.12 Hr) 1 patch DAILY PRN T-DERMAL CHEST WALL PAIN; Start 11/02/17 at 20:45 Magnesium Hydroxide (Milk Of Magnesia Liq) 30 ml Q12H PRN PO Mild constipation ; Start 11/02/17 at 19:00 Metoclopramide HCl (Reglan Inj) 5 mg Q6H PRN IV PUSH NAUSEA OR VOMITING; Start 11/02/17 at 19:30 Montelukast Sodium (Singulair) 10 mg HS PO Last administered on 11/02/17at 21:43 ; Start 11/02/17 at 21:00 Morphine Sulfate (Morphine Inj) 2 mg Q3H PRN IV PUSH Pain 6-10 Last administered on 11/03/17at 06:48; Start 11/02/17 at 19:30 Naloxone HCl (Narcan Inj) 0.4 mg UNSCH PRN IV PUSH SEE LABEL COMMENTS; Start at 19:00 Pantoprazole Sodium (Protonix) 20 mg DAILY PO Last administered on 11/03/17at 07 :40; Start 11/03/17 at 09:00 Senna/Docusate Sodium (Amy-Colace) 1 tab BID PO Last administered on at 07:40; Start 11/02/17 at 21:00 Sennosides (Senokot) 17.2 mg Q12H PRN PO Moderate constipation Last administered on 11/03/17at 07:40; Start 11/02/17 at 19:00 Sodium Chloride (NS Flush) 2 ml BID IV FLUSH ; Start 11/02/17 at 21:00 Warfarin Sodium (Coumadin) 5 mg DAILY@1600 PO ; Start 11/03/17 at 16:00 A/P Problem List: (1) Pulmonary embolism ICD Code: I26.99 - Other pulmonary embolism without acute cor pulmonale Status: Acute (2) Chest pain ICD Code: R07.9 - Chest pain, unspecified (3) Tobacco abuse ICD Code: Z72.0 - Tobacco use Assessment and Plan 1. PE: recent admit 10/31/17, CTA Pulm +PE, h/o DVT LLE 1.5yrs ago, on Xarelto for 6mo and taken off by Dr. Henderson, now w/ PE. Will need lifelong anticoagulation. Was d/c'd w/ Rx for Xarelto, however pt unable to afford $ 600 monthly payment, he does not qualify for free trial as he used it 1.5yrs ago w/ his DVT. continue with subq Lovenox and Coumadin- will consult pharmacy for coumadin dosing and case management to assist with outpatient f/u and INR monitoring. 2. Chest Pain: right-sided chest wall pain, likely secondary to PE. Initial trop negative, will check serial enzymes for trend. Lidoderm patch prn. 3. Tobacco Abuse: Pt counselled, Ativan prn. 4. DVT Prophylaxis: Lovenox/Coumadin for acute PE. Problem Qualifiers (1) Pulmonary embolism: Qualified Codes: I26.99 - Other pulmonary embolism without acute cor pulmonale Tj Wiley MD November 03, 2017 08:04
[2017-11-03] MEDS ORDERED: APIXABAN 5 MG TABLET PO SCH (09:00)
[2017-11-03] MEDS ORDERED: MORPHINE SULFATE 4 MG/ML INJ ONE (10:09)
[2017-11-03] MEDS: MORPHINE SULFATE 4 MG/ML INJ IV PUSH PRN ×3 (10:11→18:02)
[2017-11-03] MEDS ORDERED: WARFARIN SOD 5 MG TAB PO SCH (16:00)
--- NOTE | 2017-11-03 17:32 | EKG ---
Date Performed: 11/02/2017 Time Performed: 17:34:53 PTAGE: 52 years EKG: Sinus rhythm BORDERLINE LEFT AXIS DEVIATION BORDERLINE ECG PREVIOUS TRACING : 10/31/2017 19.12 Since the previous tracing, no significant change noted DOCTOR: Pamela Aguirre Interpretating Date/Time 11/03/2017 17:31:32
[2017-11-03] MEDS: MONTELUKAST SODIUM 10 MG TAB PO SCH (20:19)
[2017-11-04] VITALS: PULSE 60
[2017-11-04] MEDS: MORPHINE SULFATE 4 MG/ML INJ IV PUSH PRN
[2017-11-04 00:25] VITALS: BP 121/77; PULSE 59; RESP 16; TEMP 97.7; O2SAT 93
[2017-11-04 04:00] VITALS: PULSE 51
[2017-11-04 04:25] VITALS: BP 105/56; PULSE 69; RESP 16; TEMP 97.5; O2SAT 95
[2017-11-04 06:00] LABS: INTERNATIONAL NORMALIZED RATIO 1.1 RATIO; PROTHROMBIN TIME - PATIENT 10.8 SEC (9.8-11.6)
[2017-11-04 07:44] VITALS: BP 130/80; PULSE 59; RESP 19; TEMP 97.5; O2SAT 96
[2017-11-04] MEDS: FOLIC ACID 1 MG TAB PO SCH (09:01)
[2017-11-04] MEDS: ENOXAPARIN SODIUM 60 MG/0.6 ML SYRINGE SQ SCH (09:01)
[2017-11-04] MEDS: PANTOPRAZOLE SOD 20 MG DELAYED RELEASE TAB PO SCH (09:02)
[2017-11-04] MEDS: DOCUSATE SODIUM 50 MG/SENNA 8.6 MG TAB PO SCH (09:02)
[2017-11-04] MEDS: ACETAMINOPHEN/HYDROcodone 325 MG/5 MG TAB PO PRN (09:02)
[2017-11-04] MEDS: FLUTICASONE PROPIONATE 50 MCG/ACT 16 GM NASAL SPRAY EACH NARE SCH (09:06)
[2017-11-04] MEDS: SODIUM CHLORIDE 0.9% FLUSH 10 ML FLUSH IV FLUSH SCH (09:07)
--- NOTE | 2017-11-04 10:29 | HHI.PR ---
Subjective Remarks Mild chest pain however improved. No complaints of shortness of breath. Wants to try to go home soon. Objective Vitals Vital Signs Date Time Temp Pulse Resp B/P (MAP) Pulse Ox O2 Delivery O2 Flow Rate FiO2 11/04/17 10:02 18 11/04/17 07:44 97.5 59 19 130/80 (97) 96 11/04/17 04:25 97.5 69 16 105/56 (72) 95 11/04/17 04:00 51 11/04/17 00:25 97.7 59 16 121/77 (92) 93 11/04/17 00:00 60 11/03/17 20:11 97.9 77 16 128/83 (98) 96 11/03/17 20:00 58 11/03/17 17:01 97.3 64 139/82 (101) 98 11/03/17 12:58 97.2 57 17 124/81 (95) 97 I/O 11/03/17 11/03/17 11/03/17 11/04/17 11/04/17 11/04/17 07:00 15:00 23:00 07:00 15:00 23:00 Intake Total 1480 ml 480 ml Balance 1480 ml 480 ml Intake Oral 480 ml 480 ml IV Total 1000 ml # Voids 2 2 # Bowel Movements 0 1 0 Result Diagram: 11/03/17 0539 11/03/17 0539 Objective Remarks GENERAL: This is a well-nourished, well-developed patient, in no apparent distress. CARDIOVASCULAR: Regular rate and rhythm RESPIRATORY: Clear to auscultation. Breath sounds equal bilaterally. No wheezes , rales, or rhonchi. MUSCULOSKELETAL: Extremities without clubbing, cyanosis, or edema. NEURO: Alert & Oriented x4 to person, place, time, situation. Moves all ext x4 A/P Problem List: (1) Pulmonary embolism ICD Code: I26.99 - Other pulmonary embolism without acute cor pulmonale Status: Acute (2) Chest pain ICD Code: R07.9 - Chest pain, unspecified (3) Tobacco abuse ICD Code: Z72.0 - Tobacco use Assessment and Plan 1. PE: recent admit 10/31/17, CTA Pulm +PE, h/o DVT LLE 1.5yrs ago, on Xarelto for 6mo and taken off by Dr. Henderson, now w/ PE. Will need lifelong anticoagulation. Was d/c'd w/ Rx for Xarelto, however pt unable to afford $ 600 monthly payment, he does not qualify for free trial as he used it 1.5yrs ago w/ his DVT. continue with subq Lovenox and Coumadin- will consult pharmacy for coumadin dosing and discussed with case management to assist with outpatient f/u and INR monitoring. We will give a loading dose of 10 mg p.o. Coumadin today. 2. Chest Pain: right-sided chest wall pain, likely secondary to PE. Initial trop negative, serial enzymes negative Lidoderm patch prn. 3. Tobacco Abuse: Counseled. 4. DVT Prophylaxis: Lovenox/Coumadin for acute PE. Discharge Planning Will need arrangement for bridging with Lovenox while on Coumadin. Outpatient PT/INR and follow with primary care physician. Has discussed with case management concerning this anticipated disposition. Problem Qualifiers (1) Pulmonary embolism: Qualified Codes: I26.99 - Other pulmonary embolism without acute cor pulmonale Fe Klein MD November 04, 2017 10:29
[2017-11-04] MEDS ORDERED: RIVA1TAB PO (10:52)
[2017-11-04 11:29] VITALS: BP 126/77; PULSE 62; RESP 18; TEMP 97.6; O2SAT 97
[2017-11-04] MEDS ORDERED: WARFARIN SOD 2.5 MG TAB PO ONE (16:00)
[2017-11-04] MEDS ORDERED: WARFARIN SOD 5 MG TAB PO ONE (16:00)
[2017-11-04] MEDS ORDERED: RIVAROXABAN 15 MG TAB PO SCH (21:00)
[2017-11-10] MEDS ORDERED: APIXABAN 5 MG TABLET PO SCH (09:00)
== END 2017-11-04 14:02 | disposition home or self-care (01) | DRG 176 ==
LOC: NEPE 17:19 → NEDA 18:49 → OBSVTOIN 19:23 → N06A 20:28
PROVIDERS: ADMIT Family Medicine; ATTEND Family Medicine
DX: I26.99 Other pulmonary embolism without acute cor pulmonale (principal); Z86.718 Personal history of other venous thrombosis and embolism; Z88.0 Allergy status to penicillin; Z72.0 Tobacco use
CPT/HCPCS: 80048; 80053; 82550; 84484; 85025; 85379; 85610; 85730; 93005; J1650; J2270; J7030

== ENCOUNTER 2018-08-08 03:08 | Observation (INO) ==
[2018-08-08] MEDS ORDERED: Morphine Inj 4 MG/ML Vial IV.PUSH ONE (04:17)
[2018-08-08 04:47] LABS: Baso # (Auto) 0.1 th/mm3 (0.0-0.2); Baso % (Auto) 1.1 % (0.0-2.0); Eos # (Auto) 0.2 th/mm3 (0.0-0.4); Eos % (Auto) 2.1 % (0.0-4.0); Hematocrit 46.7 % (39.0-51.0); Hemoglobin 16.3 gm/dL (13.0-17.0); Lymph # (Auto) 2.8 th/mm3 (1.0-4.8); Lymph % (Auto) 27.9 % (9.0-44.0); Mean Corpuscular HGB Conc 34.9 % (32.0-36.0); Mean Corpuscular Hemoglobin 33.6 pg (27.0-34.0); Mean Corpuscular Volume 96.3 fL (80.0-100.0); Mean Platelet Volume 9.4 fL (7.0-11.0); Mono # (Auto) 0.7 th/mm3 (0.0-0.9); Mono % (Auto) 7.4 % (0.0-8.0); Neut # (Auto) 6.1 th/mm3 (1.8-7.7); Neut % (Auto) 61.5 % (16.0-70.0); Platelet Count 184 th/mm3 (150-450); Red Blood Count 4.85 mil/mm3 (4.50-5.90); Red Cell Distribution Width 12.7 % (11.6-17.2); White Blood Count 9.9 th/mm3 (4.0-11.0)
--- NOTE | 2018-08-08 04:59 | ED ---
HPI General Chief Complaint: Chest Pain Stated Complaint: chest pain Time Seen by Provider: 08/08/18 04:17 Source: patient Mode of arrival: ambulatory Limitations: no limitations History of Present Illness HPI narrative: 53-year-old male arrives complaining of chest pain the left side. Throbbing quality. Duration is been a couple hours. He has a history of pulmonary embolism he reports compliance with Xarelto. He says he feels like prior pulmonary embolism. No pleuritic pain. Patient reports frequent cough. No radiation of pain. Severity moderate. Related Data Home Medications Medication Instructions Recorded Confirmed atorvastatin [Lipitor] 40 mg PO DAILY 08/08/18 08/08/18 fluticasone [Flonase Allergy 1 spray INTRANASAL DAILY 08/08/18 08/08/18 Relief] fluticasone-vilanterol [Breo 1 inh INHALATION DAILY 08/08/18 08/08/18 Ellipta] meloxicam [Mobic] 7.5 mg PO DAILY 08/08/18 08/08/18 omeprazole magnesium [Prilosec OTC] 40 mg PO DAILY 08/08/18 08/08/18 rivaroxaban [Xarelto] 20 mg PO DAILY 08/08/18 08/08/18 umeclidinium [Incruse Ellipta] 1 inh INHALATION DAILY 08/08/18 08/08/18 Allergies Allergy/AdvReac Type Severity Reaction Status Date / Time penicillin G AdvReac Severe FAINT, Verified 08/08/18 03:47 NAUSEA Review of Systems ROS: all other systems reviewed are negative [facility] Medical History Medical History GERD (gastroesophageal reflux disease) (Acute) Pulmonary embolism (Acute) Social History Social History Substance History: No History of Abuse Second Hand Smoke Exposure: No Smoking Status: Never smoker How Often Do You Have a Drink Containing Alcohol: Never Recent Travel in [facility] within the Last 8 Weeks: No Recent Out of Country Travel within the Last 8 Weeks: No Immunization History Tetanus Immunization: >5 Years Exam Narrative Exam Narrative: GENERAL: 53-year-old male well-nourished well-developed pleasant SKIN: Focused skin assessment warm/dry. HEAD: Atraumatic. Normocephalic. EYES: Pupils equal and round. No scleral icterus. No injection or drainage. ENT: No nasal bleeding or discharge. Mucous membranes pink and moist. NECK: Trachea midline. No JVD. CARDIOVASCULAR: Minimal tenderness overlying the region of left anterior chest wall. Heart rate is about 70. Regular rhythm. RESPIRATORY: No accessory muscle use. Clear to auscultation. Breath sounds equal bilaterally. GASTROINTESTINAL: Abdomen soft, non-tender, nondistended. Hepatic and splenic margins not palpable. MUSCULOSKELETAL: No obvious deformities. No clubbing. No cyanosis. No edema. NEUROLOGICAL: Awake and alert. No obvious cranial nerve deficits. Motor grossly within normal limits. Normal speech. PSYCHIATRIC: Appropriate mood and affect; insight and judgment normal. Course Initial Documented Vital Signs Temperature 98.2 F 08/08/18 03:47 Pulse Rate 85 08/08/18 03:47 Respiratory Rate 18 08/08/18 03:47 Blood Pressure 186/111 H 08/08/18 03:47 Pulse Oximetry 97 08/08/18 03:47 Last Documented Vital Signs Temperature 98.2 F 08/08/18 03:47 Pulse Rate 68 08/08/18 04:02 Respiratory Rate 15 08/08/18 04:58 Blood Pressure 168/91 H 08/08/18 04:02 Pulse Oximetry 99 08/08/18 04:02 Medical Decision Making [facility] Narrative Medical decision making narrative: EKG shows a sinus rhythm at a rate of 76 normal axis normal intervals no T wave inversion ST flattening or elevation, no right heart strain CBC normal Cr 1.51 BUN 22 Tn < 0.02 Lipase normal EtOH < 3 CXR: NACPD CTA Chest: No embolism Patient will stay for chest pain center evaluation. Medical Screen Exam Complete: Yes Emergency Medical Condition: Yes Lab Data Result diagrams: 08/08/18 04:35 08/08/18 04:35 Lab Results 08/08/18 08/08/18 Range/Units 04:35 04:35 WBC 9.9 (4.0-11.0) th/mm3 RBC 4.85 (4.50-5.90) mil/mm3 Hgb 16.3 (13.0-17.0) gm/dL Hct 46.7 (39.0-51.0) % MCV 96.3 (80.0-100.0) fL MCH 33.6 (27.0-34.0) pg MCHC 34.9 (32.0-36.0) % RDW 12.7 (11.6-17.2) % Plt Count 184 (150-450) th/mm3 MPV 9.4 (7.0-11.0) fL Neut % (Auto) 61.5 (16.0-70.0) % Lymph % (Auto) 27.9 (9.0-44.0) % Winkler % (Auto) 7.4 (0.0-8.0) % Eos % (Auto) 2.1 (0.0-4.0) % Baso % (Auto) 1.1 (0.0-2.0) % Neut # (Auto) 6.1 (1.8-7.7) th/mm3 Lymph # (Auto) 2.8 (1.0-4.8) th/mm3 Winkler # (Auto) 0.7 (0.0-0.9) th/mm3 Eos # (Auto) 0.2 (0.0-0.4) th/mm3 Baso # (Auto) 0.1 (0.0-0.2) th/mm3 WBC Differential . Differential Comment Auto diff final Sodium 143 (136-145) meq/L Potassium 4.0 (3.5-5.1) meq/L Chloride 108 H (98-107) meq/L Carbon Dioxide 27.7 (21.0-32.0) meq/L Anion Gap 7 (5-15) meq/L BUN 22 H (7-18) mg/dL Creatinine 1.51 H (0.60-1.30) mg/dL Estimated GFR 49 L (>89) mL/min Random Glucose 99 (74-106) mg/dL Calcium 9.2 (8.5-10.1) mg/dL Total Bilirubin 0.3 (0.2-1.0) mg/dL AST 15 (15-37) U/L ALT 32 (12-78) U/L Alkaline Phosphatase 76 (45-117) U/L Troponin I Less than 0.02 L (0.02-0.05) ng/mL Total Protein 7.4 (6.4-8.2) g/dL Albumin 3.9 (3.4-5.0) g/dL Lipase 138 (73-393) U/L Serum Alcohol Less than 3 (0-5) mg/dL Imaging Data Radiologist's impression: Chest CTA 08/08/18 04:17 CONCLUSION: This study is negative for pulmonary embolism. Chest X-Ray 08/08/18 04:17 CONCLUSION: No acute disease Discharge Plan Discharge Disposition Patient Disposition: ED Admit(ED Internal Use Only) Discharge Order Discharge Orders: ED Use Only Admit Order (Routine); Ordered 08/08/18 Ordered By: Momo Zavala Physicians Team ED Provider: Momo Zavala Primary Care Provider: Saad Esquivel Attending Provider: Leslie Houser Discharge Interventions Interventions: Vital Signs Last Done: 08/08/18 04:02 Status ED Status: Admitted Observation Patient
[2018-08-08 05:12] LABS: Alanine Aminotransferase 32 U/L (12-78); Albumin 3.9 g/dL (3.4-5.0); Anion Gap 7 meq/L (5-15); Aspartate Aminotransferase 15 U/L (15-37); Blood Urea Nitrogen 22 mg/dL (7-18); Calcium 9.2 mg/dL (8.5-10.1); Carbon Dioxide 27.7 meq/L (21.0-32.0); Chloride 108 meq/L (98-107); Glomerular Filtration Rate 49 mL/min (>89); Glucose,Random 99 mg/dL (74-106); Lipase 138 U/L (73-393); Sodium 143 meq/L (136-145)
[2018-08-08 05:16] LABS: Alkaline Phosphatase 76 U/L (45-117); Total Protein 7.4 g/dL (6.4-8.2)
--- NOTE | 2018-08-08 05:38 | XR ---
EXAM DATE: 08/08/2018 4:34 AM EST AGE/SEX: 53 years / Male INDICATIONS: Short of breath. CLINICAL DATA: This is the patient's initial encounter. Patient reports that signs and symptoms have been present for 2 days and indicates a pain score of 6/10. MEDICAL/SURGICAL HISTORY: . Pulmonary embolism. Blood clots. None. COMPARISON: [facility], RIBS RIGHT(W PA CXR MIN 3VWS), 10/31/2017. . FINDINGS: A single AP view of the chest demonstrates the lungs to be symmetrically aerated without evidence of mass, infiltrate or effusion. The cardiomediastinal contours are unremarkable. Osseous structures a re intact. CONCLUSION: No acute disease Electronically signed by: Dario Pratt MD Board Certified Radiologist 08/08/2018 5:36 AM EST
--- NOTE | 2018-08-08 05:50 | CT ---
EXAM DATE: 08/08/2018 5:41 AM EST AGE/SEX: 53 years / Male INDICATIONS: Chest pain and shortness of breath. CLINICAL DATA: This is the patient's initial encounter. Patient reports that signs and symptoms have been present for 1 day and indicates a pain score of 6/10. MEDICAL/SURGICAL HISTORY: . Pulmonary embolism. None. RADIATION DOSE: 10.70 CTDI (mGy) COMPARISON: [facility] – [place], [place], CT PULMONARY ANGIOGRAM, 10/31/2017. . TECHNIQUE: Volumetric scanning was performed using a multi-row detector CT scanner during bolus infu noman of 75 ml Omnipaque 350 (iohexol) nonionic water-soluble contrast as a single exam dose. The poncho a was post processed with a variety of visualization algorithms including full volume maximum intensi ty projection and sliding thin slab reformation. Using automated exposure control and adjustment of the mA and/or kV according to patient size, radiation dose was kept as low as reasonably achievable t o obtain optimal diagnostic quality images. DICOM format image data is available electronically for review and comparison. FINDINGS: Pulmonary Arteries: No filling defects are seen in the pulmonary arteries out to the subsegmental ve ssels. The left and right pulmonary arteries are normal in diameter. Lung: Emphysema. Mild basilar atelectasis. Effusion: None. Mediastinum: No evidence of mediastinal or hilar adenopathy. Other: The axilla is unremarkable. CONCLUSION: This study is negative for pulmonary embolism. Electronically signed by: Dario Pratt MD Board Certified Radiologist 08/08/2018 5:49 AM EST
[2018-08-08] MEDS ORDERED: Acetaminophen 500 MG Tablet PO PRN (06:18)
[2018-08-08] MEDS ORDERED: ALPRAZolam 0.25 MG Tablet PO PRN (06:18)
[2018-08-08] MEDS ORDERED: Temazepam 15 MG Capsule PO PRN (06:18)
[2018-08-08] MEDS ORDERED: Morphine Inj 4 MG/ML Vial IV.PUSH PRN (06:18)
[2018-08-08 07:34] LABS: Creatine Kinase 110 U/L (39-308)
[2018-08-08 07:47] VITALS: BP 128/83; PULSE 61; RESP 18; TEMP 98.5; O2SAT 96
[2018-08-08] MEDS ORDERED: Regadenoson Inj 0.4 MG/5 ML Syringe IV.PUSH ONE (08:03)
--- NOTE | 2018-08-08 08:43 | P.HPCA ---
History of Present Illness Primary Care Physician: Saad Esquivel MD Chief Complaint: Chest pain History of Present Illness: This is a 53-year-old male history of hyperlipidemia, PE, DVT that presents to ED with complaint of chest discomfort. States 2 nights ago he began having this discomfort has been constant ever since. Worsen when he takes in a deep breath. Ponce is a throbbing pain. Discomforts worsen last night prompting him to come to the ED. He was concerned he may been having another pulmonary embolus but a CTA in the emerge part ruled out pulmonary embolus. Denies nausea , diaphoresis, and really has not been short of breath. Cannot recall any recent stress testing. Past medical history hyperlipidemia. He also has had 5 PEs last year and a DVT prior to that. He voices compliance with Xarelto. Denies hypertension, diabetes, and known CAD. Family history: States his family history heart disease. Social history: Patient states he quit smoking cigarettes about 15 years ago. - Diagnosis (1) Chest pain (2) History of pulmonary embolus (PE) Review of Systems General: Patient denies fevers, chills, and recent travel. HEENT: Patient denies headache, sore throat, difficulty swallowing. Cardiovascular: Has the chest discomfort as mentioned above. Denies sensation of heart beating rapidly or irregularly. No syncope. Denies diaphoresis. Respiratory: States that taking a deep breath worsens the discomfort. Denies shortness of breath. Denies coughing wheezing or hemoptysis. GI: Patient denies nausea, vomiting, diarrhea, abdominal pain, bloody stools. Musculoskeletal: Patient denies joint pain or edema. Denies calf pain or edema. Neurovascular: Patient denies numbness, tingling, weakness in extremities. Denies headache. Endocrine: Denies polyuria and polydipsia. Hematologic: Denies easy bruising. Skin: Denies rash or itching. PMFSH - History History Provided By: Patient - Medical History Medical History: Medical History (Last Updated 08/08/18 @ 03:49 by Rosina Castellon) GERD (gastroesophageal reflux disease) Pulmonary embolism - Tobacco History Second Hand Smoke Exposure: Yes Tobacco Use In Past 30 Days: No Smoking Status: Former smoker Tobacco Type: Cigarettes - Alcohol History How Often Do You Have a Drink Containing Alcohol: Never - Substance Use History Substance History: No History of Abuse - Travel History Recent Travel in the [place] Within the Last 8 Weeks: No Recent Travel Out of the Country Within the Last 8 Weeks: No - Immunization History Tetanus Immunization: >5 Years Medications and Allergies Active Medications: Active Medications Acetaminophen (Tylenol) 500 mg PO Q4H PRN PRN Reason: HEADACHE Hydrocodone Bitart/Acetaminophen (Clark 7.5/325) 1 tab PO Q4H PRN PRN Reason: PAIN SCALE 1 TO 7 Albuterol (Albuterol Neb (Prn)) 2.5 mg NEB UNSCH PRN PRN Reason: SHORTNESS OF BREATH/WHEEZING Albuterol (Duoneb Neb (Prn)) 1 ampul NEB UNSCH PRN PRN Reason: SHORTNESS OF BREATH/WHEEZING Alprazolam (Xanax) 0.25 mg PO Q8H PRN PRN Reason: ANXIETY Aspirin (Aspirin) 325 mg PO DAILY TAMMIE Atorvastatin Calcium (Lipitor) 40 mg PO DAILY TAMMIE Morphine Sulfate (Morphine Inj) 2 mg IV.PUSH Q4H PRN PRN Reason: PAIN SCALE 8 TO 10 Nitroglycerin (Nitrostat Sl) 0.4 mg SL Q5M PRN PRN Reason: CHEST PAIN Ondansetron HCl (Zofran Inj) 4 mg IV.PUSH Q6H PRN PRN Reason: NAUSEA Pantoprazole Sodium (Protonix) 40 mg PO DAILY TAMMIE Rivaroxaban (Xarelto) 20 mg PO DAILY TAMMIE Sodium Chloride (Ns Flush) 2 ml IV.FLUSH UNSCH PRN PRN Reason: FLUSH AFTER USING IV ACCESS Sodium Chloride (Ns Flush) 2 ml IV.FLUSH BID TAMMIE Sodium Chloride (Ns Flush) 2 ml IV.FLUSH PRN PRN PRN Reason: FLUSH AFTER USING IV ACCESS Temazepam (Restoril) 15 mg PO HS PRN PRN Reason: INSOMNIA Allergies Allergy/AdvReac Type Severity Reaction Status Date / Time penicillin G AdvReac Severe FAINT, Verified 08/08/18 03:47 NAUSEA Home Medications Medication Instructions Recorded Confirmed Type atorvastatin [Lipitor] 40 mg PO DAILY 08/08/18 08/08/18 History fluticasone [Flonase Allergy 1 spray INTRANASAL DAILY 08/08/18 08/08/18 History Relief] fluticasone-vilanterol [Breo 1 inh INHALATION DAILY 08/08/18 08/08/18 History Ellipta] meloxicam [Mobic] 7.5 mg PO DAILY 08/08/18 08/08/18 History omeprazole magnesium [Prilosec OTC] 40 mg PO DAILY 08/08/18 08/08/18 History rivaroxaban [Xarelto] 20 mg PO DAILY 08/08/18 08/08/18 History umeclidinium [Incruse Ellipta] 1 inh INHALATION DAILY 08/08/18 08/08/18 History Exam Vital signs: Vital Signs 08/08/18 03:47 08/08/18 04:02 08/08/18 04:22 Temperature 98.2 F Pulse Rate 85 68 Respiratory Rate 18 17 17 Blood Pressure 186/111 H 168/91 H Pulse Oximetry 97 99 08/08/18 04:58 08/08/18 06:47 08/08/18 07:46 Temperature 98.5 F Pulse Rate 61 Respiratory Rate 15 15 18 Blood Pressure 128/83 Pulse Oximetry 96 Intake & Output 08/07/18 08/08/18 08/08/18 18:59 06:59 18:59 Weight 95.254 kg 95.254 kg Other: Weight On Admission 95.254 kg Narrative: GENERAL: This is a well-nourished, well-developed patient, in no apparent distress. Patient speaks in clear complete sentences. Patient is pleasant. HEENT: Head is atraumatic and normocephalic. Neck is supple without lymphadenopathy and trachea is midline. No JVD or carotid bruits. CARDIOVASCULAR: Regular rate and rhythm without murmurs, gallops, or rubs. RESPIRATORY: Clear to auscultation. Breath sounds equal bilaterally. No wheezes , rales, or rhonchi. Chest wall is nontender. No use of accessory muscles. GASTROINTESTINAL: Abdomen is nontender, nondistended. Abdomen soft. No obvious pulsatile mass or bruit. No CVA tenderness. Strong femoral pulses bilaterally. Normal bowel sounds in all quadrants. MUSCULOSKELETAL: Patient is moving upper and lower extremities freely. No calf tenderness or edema, no Homans sign. Strong pulses in upper and lower extremities. NEUROLOGICAL: Patient is alert and oriented. Cranial nerves 2-12 are grossly intact. No focal deficits and speech is clear. SKIN: No rash and turgor is normal. Results 08/08/18 04:35 08/08/18 04:35 Cardiac Enzymes 08/08/18 08/08/18 Range/Units 04:35 06:55 AST 15 (15-37) U/L Troponin I Less than 0.02 L Less than 0.02 L (0.02-0.05) ng/mL CBC 08/08/18 Range/Units 04:35 WBC 9.9 (4.0-11.0) th/mm3 RBC 4.85 (4.50-5.90) mil/mm3 Hgb 16.3 (13.0-17.0) gm/dL Hct 46.7 (39.0-51.0) % Plt Count 184 (150-450) th/mm3 Neut # (Auto) 6.1 (1.8-7.7) th/mm3 Lymph # (Auto) 2.8 (1.0-4.8) th/mm3 Terrell # (Auto) 0.7 (0.0-0.9) th/mm3 Eos # (Auto) 0.2 (0.0-0.4) th/mm3 Baso # (Auto) 0.1 (0.0-0.2) th/mm3 Comprehensive Metabolic Panel 08/08/18 Range/Units 04:35 Sodium 143 (136-145) meq/L Potassium 4.0 (3.5-5.1) meq/L Chloride 108 H (98-107) meq/L Carbon Dioxide 27.7 (21.0-32.0) meq/L BUN 22 H (7-18) mg/dL Creatinine 1.51 H (0.60-1.30) mg/dL Calcium 9.2 (8.5-10.1) mg/dL AST 15 (15-37) U/L ALT 32 (12-78) U/L Alkaline Phosphatase 76 (45-117) U/L Total Protein 7.4 (6.4-8.2) g/dL Albumin 3.9 (3.4-5.0) g/dL Intake and Output 08/07/18 08/08/18 08/08/18 22:59 06:59 14:59 Other: Weight 95.254 kg 95.254 kg Weight On Admission 95.254 kg Patient Weight 08/09/18 06:59 Weight 95.254 kg - Imaging and Cardiology Imaging: Impressions Chest CTA 08/08/18 04:17 CONCLUSION: This study is negative for pulmonary embolism. Chest X-Ray 08/08/18 04:17 CONCLUSION: No acute disease EKG interpretations - EKG EKG shows: sinus rhythm (EKGs are sinus rhythm without significant ST segment depressions or elevations.) Caprini VTE Risk Assessment Caprini VTE Risk Assessment: Moderate/High Risk (score >= 2) Caprini Risk Assessment Model: Point Value = 1 Point Value = 2 Point Value = 3 Point Value = 5 Age 41-60 Minor surgery BMI > 25 kg/m2 Swollen legs Varicose veins or History of unexplained or recurrent spontaneous Oral contraceptives or hormone replacement Sepsis (< 1 month) Serious lung disease, including pneumonia (< 1 month) Abnormal pulmonary function Acute myocardial infarction Congestive heart failure (< 1 month) History of inflammatory bowel disease Medical patient at bed rest Age 61-74 Arthroscopic surgery Major open surgery (> 45 min) Laparoscopic surgery (> 45 min) Malignancy Confined to bed (> 72 hours) Immobilizing plaster cast Central venous access Age >= 75 History of VTE Family history of VTE Factor V Leiden Prothrombin [id number] Lupus anticoagulant Anticardiolipin antibodies Elevated serum homocysteine Heparin-induced thrombocytopenia Other congenital or acquired thrombophilia Stroke (< 1 month) Elective arthroplasty Hip, pelvis, or leg fracture Acute spinal cord injury (< 1 month) Prophylaxis Regimen: Total Risk Factor Score Risk Level Prophylaxis Regimen 0-1 Low Early ambulation 2 Moderate Order ONE of the following: *Sequential Compression Device (SCD) *Heparin 5000 units SQ BID 3-4 Higher Order ONE of the following medications: *Heparin 5000 units SQ TID *Enoxaparin/Lovenox 40 mg SQ daily (WT < 150 kg, CrCl > 30 mL/min) *Enoxaparin/Lovenox 30 mg SQ daily (WT < 150 kg, CrCl > 10-29 mL/min) *Enoxaparin/Lovenox 30 mg SQ BID (WT < 150 kg, CrCl > 30 mL/min) AND/OR *Sequential Compression Device (SCD) 5 or more Highest Order ONE of the following medications: *Heparin 5000 units SQ TID (Preferred with Epidurals) *Enoxaparin/Lovenox 40 mg SQ daily (WT < 150 kg, CrCl > 30 mL/min) *Enoxaparin/Lovenox 30 mg SQ daily (WT < 150 kg, CrCl > 10-29 mL/min) *Enoxaparin/Lovenox 30 mg SQ BID (WT < 150 kg, CrCl > 30 mL/min) AND *Sequential Compression Device (SCD) Assessment and Plan - Assessment (1) Chest pain Code(s): R07.9 - Chest pain, unspecified Status: Acute (2) History of pulmonary embolus (PE) Code(s): Z86.711 - Personal history of pulmonary embolism Status: Acute H&P: Quality - VTE Deep Vein Thrombosis/Pulmonary Embolism Present on Admission: No
[2018-08-08] MEDS ORDERED: Rivaroxaban 20 MG Tablet PO SCH (09:00)
[2018-08-08] MEDS ORDERED: Aspirin 325 MG Tablet PO SCH (09:00)
--- NOTE | 2018-08-08 17:17 | TR ---
Date Performed: 08/08/2018 Time Performed: 08:52:31 DOCTOR: Leslie Houser DRUG LIST: CLINICAL HISTORY: REASON FOR TEST: Chest pain REASON FOR ENDING: OBSERVATION: CONCLUSION: ADOLFO PROTOCOL ETT. HIS CONSTANT CHEST DISCOMFORT DID NOT WORSEN AND MIGHT HAVE IMPR VERONICA DURING STRESS TEST.Maximum DS=030 % Max HR Achieved=85.0% Maximum GH=357/80 Total Exercise Time= 5:21 COMMENTS: no ischemia
--- NOTE | 2018-08-08 17:17 | ECG ---
Date Performed: 08/08/2018 Time Performed: 06:55:43 PTAGE: 53 years EKG: Sinus rhythm BORDERLINE LEFT AXIS DEVIATION BORDERLINE ECG Since PREVIOUS TRACING , no significant change noted PREVIOUS TRACIN08/08/2018 04.06 DOCTOR: Leslie Houser Interpretating Date/Time 08/08/2018 17:15:50
--- NOTE | 2018-08-08 17:17 | ECG ---
Date Performed: 08/08/2018 Time Performed: 04:06:07 PTAGE: 53 years EKG: Sinus rhythm NORMAL ECG Since PREVIOUS TRACING , no significant change noted PREVIOUS TRACIN11/02/2017 17.34 DOCTOR: Leslie Houser Interpretating Date/Time 08/08/2018 17:16:04
== END 2018-08-08 10:12 | disposition home or self-care (01) ==
LOC: NEDA 03:08 → NEPE 03:08 → NEPFCDU 07:10
PROVIDERS: ADMIT Internal Medicine Interventional Cardiology; ATTEND Internal Medicine Interventional Cardiology
DX: Z82.49 Family history of ischemic heart disease and other diseases of the circulatory system; Z79.51 Long term (current) use of inhaled steroids; Z79.01 Long term (current) use of anticoagulants; K21.9 Gastro-esophageal reflux disease without esophagitis; R07.89 Other chest pain; Z86.711 Personal history of pulmonary embolism; E78.5 Hyperlipidemia, unspecified; R94.31 Abnormal electrocardiogram [ECG] [EKG]; Z87.891 Personal history of nicotine dependence
CPT/HCPCS: 71010; 71045; 71275; 80053; 80307; 82550; 83690; 84484; 85025; 90774; 90784; 93005; 93017; 96374; 99285; C8952; G0378; J2270; Q9967